=== PATIENT | female | born 1955 | race Caucasian/White ===

== ENCOUNTER → 2020-04-24 10:51 | Outpatient (BNVA) | payer MEDICAID, SELFPAY | PROVIDERS: Family Provider Family Medicine; PCP Family Medicine; Visit Provider Nurse Practitioner Family | DX: R30.0 Dysuria (principal); S80.811A Abrasion, right lower leg, initial encounter; T14.90XA Injury, unspecified, initial encounter | CPT/HCPCS: 81000; 87491; 87591 ==

== ENCOUNTER 2020-08-15 15:56 | Inpatient (IN) | payer MEDICAID, SELFPAY ==
[2020-08-15 16:08] VITALS: BP 122/72; PULSE 103; RESP 14; TEMP 36.2; O2SAT 91; BMI 28.4
--- NOTE | 2020-08-15 20:15 | W.ED.SKABFB ---
Documented by User: NANCI Sierra 08/15/20 23:52 HPI - Skin/Abscess/Foreign Bdy General: Chief complaint: Skin/Abscess/Foreign Body Stated complaint: Spider Bite on ABD/Enlarged over two wk span Time Seen by Provider: 08/15/20 20:15 History of Present Illness: HPI narrative: Patient is a 65-year-old female comes to the ED with a wound on her abdomen. Patient says the wound started about 2 weeks ago and was just a small red dot on her right lower quadrant of abdomen. She suspects that it was a spider bite. She says she woke up that morning and saw a red dot on her abdomen. It then started to develop some erythema and warmth around it and the small red dots started getting bigger. Patient has seen her PCP and has been put on clindamycin and she has been taking med for the past 6 days. PCP thinks patient has spider bite. Wound has not improved and has only gotten larger. She says it drains out bloody puslike drainage. She says it is painful she rates it a 10 out of 10. Patient says she has had a fever earlier this week but it resolved and she has not a fever since. Denies any chest pain, shortness of breath, bladder or bowel symptoms. Associated symptoms: Deny chills, fever(s), nausea or vomiting Review of Systems Const: Denies: fever(s), chills or fatigue Eyes: Denies: change in vision or eye discomfort ENMT: Denies: throat pain, odynophagia, nasal discharge or nasal congestion Card: Denies: chest pain, palpitations, edema, swelling of feet/ankles, dyspnea on exertion or orthopnea Resp: Denies: dyspnea, productive cough or non-productive cough GI: Denies: abdominal pain, nausea, vomiting, diarrhea, constipation or hematochezia : Denies: flank pain, dysuria or hematuria Musc: Denies: neck pain, back pain or extremity swelling Skin/Breast: Reports: erythema (Right lower quadrant), skin tenderness (Right lower quadrant) and new lesions (Lesion on right lower quadrant of abdomen with surrounding erythema.); Denies: rash Neuro: Denies: headache(s), numbness in extremities or weakness in extremities PFS ED PFSH: Medical History Benign hypertension Cardiac pacemaker Crohn disease Diabetes Diabetic neuropathy Hyperlipidemia, mixed Insomnia PAD (peripheral artery disease) Surgical History H/O section H/O: hysterectomy Family History Other Diabetes Social History Smoking and tobacco status: current every day smoker cigarettes Packs smoked per day: 2 Second hand smoke exposure: No Alcohol intake: never Desire information about alcohol rehabilitation?: No Desire information about substance/drug rehabilitation?: No History of recent travel: No Current gender identity: Female Female Reproductive History: Spontaneous abortions: No Physical Exam Const: COMMON NORMALS: no acute distress, patient oriented x3 and alert GENERAL APPEARANCE: cooperative and comfortable HENMT: COMMON NORMALS: normocephalic HEAD & SCALP: normocephalic MOUTH: Normal oral and palatal mucosa present THROAT: posterior oropharynx normal and uvula midline Eye: COMMON NORMALS: Equal, round and reactive pupils present PUPIL: Yes Equal, round and reactive pupils present Neck/C-Spine: COMMON NORMALS: supple GENERAL: Yes normal visual inspection Resp: COMMON NORMALS: normal respiratory effort, No retractions, No use of accessory muscles and clear to auscultation bilaterally AUSCULTATION: clear to auscultation bilaterally Cardio: COMMON NORMALS: regular rate, regular rhythm, S1 normal heart sound present, S2 normal heart sound present, No gallops present (Cardio), No clicks present (Cardio), No murmurs present (Cardio) and Peripheral pulses 2+ throughout RATE: regular rate RHYTHM: regular rhythm HEART SOUNDS: S1 normal heart sound present and S2 normal heart sound present PERIPHERAL PULSES: Peripheral pulses 2+ throughout GI: COMMON NORMALS: Normal to inspection, nondistended, normoactive bowel sounds present, Soft to palpation, non-tender and no masses PALPATION: Yes Soft to palpation OTHER: Patient has approximately 12 cm wound with breakdown of skin tissue on right lower quadrant. There is surrounding erythema and warmth. Minimal purulent and bloody drainage seen. Tenderness to palpation. Upon palpation tissue feels indurated and nonfluctuant. : COMMON NORMALS: Yes no CVA tenderness BLADDER/KIDNEY EXAM: Yes no CVA tenderness Back/Pelvis: COMMON NORMALS: no CVA tenderness Extremity: COMMON NORMALS: normal to inspection and no pedal edema Neuro: COMMON NORMALS: patient oriented x3 and moves all extremities SENSORIUM/ORIENTATION: Yes alert Skin: NARRATIVE SKIN EXAM: Patient has approximately 12 cm wound with breakdown of skin tissue on right lower quadrant. There is surrounding erythema and warmth. Minimal purulent and bloody drainage seen. Tenderness to palpation. Upon palpation tissue feels indurated and nonfluctuant. GENERAL SKIN EXAM: dry skin Course Vital Signs: Vital signs: Vital Signs Temperature 97.2 F L 08/15/20 16:08 Pulse Rate 76 08/15/20 22:21 Respiratory Rate 16 08/15/20 22:21 Blood Pressure 114/64 08/15/20 22:21 Pulse Oximetry 94 08/15/20 22:21 MDM - Skin/Abscess/Foreign Bdy Lab Data: Attestation: I reviewed the patient's lab results. Labs: Lab Results 08/15/20 08/15/20 08/15/20 Range/Units 20:43 20:43 20:43 WBC 15.3 H (4.0-10.0) 10^3/ uL RBC 4.34 (4.1-5.3) 10^6/u L Hgb 11.6 (11.5-15.3) g/dL Hct 35.1 L (37.0-47.0) % MCV 80.9 L (81-99) fL MCH 26.7 L (28.0-34.0) pg MCHC 33.0 (30.0-36.0) g/dL RDW 16.4 H (12.1-15.1) % Plt Count 166 (130-400) 10^3/c mm MPV Not Reportable Lymph % (Auto) Not Reportable [place] % (Auto) Not Reportable Lymph # (Auto) Not Reportable [place] # (Auto) Not Reportable Total Counted 100 (0-100) Atypical Lymphs % 0.0 (0-5) % Absolute Neutrophi ls 13.8 H (1.4-6.5) 10^3/c mm Segmented Neutroph ils 90 % Abs Segm Neuts (Ma n) 13.8 H (1.6-7.1) 10/cmm Band Neutrophils 0.0 % Abs Band Neuts (Ma n) 0.0 (0.0-1.2) 10^3/c mm Lymphocytes (Manua l) 8 % Monocytes (Manual) 1.0 % Absolute Monocytes 0.2 (0.1-0.6) 10^3/c mm Eosinophils (Manua l) 1 % Absolute Eosinophi ls 0.1 (0.0-0.7) 10^3/c mm Basophils (Manual) 0.0 % Absolute Basophils 0.0 (0.0-0.2) 10^3/c mm Platelet Estimate Normal (Normal) Hypochromasia Trace Sodium 126 L (136-145) mmol/L Potassium 5.0 (3.5-5.1) mmol/L Chloride 86 L (98-107) mmol/L Carbon Dioxide 27 (22-29) mmol/L Anion Gap 18.0 (5-19) BUN 33 H (8-23) mg/dL Creatinine 0.6 (0.5-0.9) mg/dL GFR Calculation 101.0 (90-130) mL/min Glucose 663 H* (65-115) mg/dL POC Glucose (70-110) mg/dL Calculated Osmolal ity 301 H (285-295) mOsm/k g Lactic Acid 1.6 (0.5-2.2) mmol/L Calcium 9.4 (8.5-10.5) mg/dL Total Bilirubin 0.5 (0.15-1.2) mg/dL AST 7 (0-32) U/L ALT 11 (0-33) U/L Alkaline Phosphata se 182 H (35-105) IU/L Total Protein 7.0 (6.6-8.7) g/dL Albumin 3.5 (3.5-5.2) g/dL Globulin 3.5 (1.3-4.6) g/dL Lipase 8 L (13-60) U/L 11/30/20 Range/Units 23:10 WBC (4.0-10.0) 10^3/ uL RBC (4.1-5.3) 10^6/u L Hgb (11.5-15.3) g/dL Hct (37.0-47.0) % MCV (81-99) fL MCH (28.0-34.0) pg MCHC (30.0-36.0) g/dL RDW (12.1-15.1) % Plt Count (130-400) 10^3/c mm MPV Lymph % (Auto) [place] % (Auto) Lymph # (Auto) [place] # (Auto) Total Counted (0-100) Atypical Lymphs % (0-5) % Absolute Neutrophi ls (1.4-6.5) 10^3/c mm Segmented Neutroph ils % Abs Segm Neuts (Ma n) (1.6-7.1) 10/cmm Band Neutrophils % Abs Band Neuts (Ma n) (0.0-1.2) 10^3/c mm Lymphocytes (Manua l) % Monocytes (Manual) % Absolute Monocytes (0.1-0.6) 10^3/c mm Eosinophils (Manua l) % Absolute Eosinophi ls (0.0-0.7) 10^3/c mm Basophils (Manual) % Absolute Basophils (0.0-0.2) 10^3/c mm Platelet Estimate (Normal) Hypochromasia Sodium (136-145) mmol/L Potassium (3.5-5.1) mmol/L Chloride (98-107) mmol/L Carbon Dioxide (22-29) mmol/L Anion Gap (5-19) BUN (8-23) mg/dL Creatinine (0.5-0.9) mg/dL GFR Calculation (90-130) mL/min Glucose (65-115) mg/dL POC Glucose 379 (70-110) mg/dL Calculated Osmolal ity (285-295) mOsm/k g Lactic Acid (0.5-2.2) mmol/L Calcium (8.5-10.5) mg/dL Total Bilirubin (0.15-1.2) mg/dL AST (0-32) U/L ALT (0-33) U/L Alkaline Phosphata se (35-105) IU/L Total Protein (6.6-8.7) g/dL Albumin (3.5-5.2) g/dL Globulin (1.3-4.6) g/dL Lipase (13-60) U/L Imaging Data^: CT Abd/Pel: Attestation: I personally reviewed and interpreted this imaging study as follows: Radiologist's impression: [address] [address] [address] Scan Report Signed Patient: Janae Shaw Unit #: [id number] : 1955 Age/Sex: 65 / F ADM Date: 08/15/20 Loc: ER Room/Bed: Attending Dr: Ordering Provider/Ordering MD: Terrance Dempsey Date of Service: 08/15/20 Procedure(s): CT abdomen pelvis w con* [id number] Accession Number(s): [id number] Report Number: [id number] PROCEDURE INFORMATION: Exam: CT Abdomen And Pelvis With Contrast Exam date and time: 08/15/2020 8:54 PM Age: 65 years old Clinical indication: Abdominal pain; Localized; Right lower quadrant (rlq); Prior surgery; Surgery date: 6+ months; Surgery type: Hyst; Patient HX: Rlq abd spider bite - redness, swelling; Additional info: Cellulitis with possible abscess in rlq TECHNIQUE: Imaging protocol: Computed tomography of the abdomen and pelvis with intravenous contrast. Radiation optimization: All CT scans at this facility use at least one of these dose optimization techniques: automated exposure control; mA and/or kV adjustment per patient size (includes targeted exams where dose is matched to clinical indication); or iterative reconstruction. Contrast material: OMNI 300; Contrast volume: 95 ml; Contrast route: INTRAVENOUS (IV); COMPARISON: No relevant prior studies available. RADIATION DOSE METRICS: Total DLP (mGy-cm): 1181.75 FINDINGS: Tubes, catheters and devices: Pacemaker leads in the heart. Liver: Normal. No mass. Gallbladder and bile ducts: Normal. No calcified stones. No ductal dilation. Pancreas: Normal. No ductal dilation. Spleen: Calcified granulomas in the spleen. Adrenal glands: Bilateral adrenal nodules measuring 1.9 cm on the right and 2.0 cm on the left. Hounsfield unit measure approximately 37. Kidneys and ureters: Fluid density cysts in both kidneys, Hounsfield units less than 20, and subcentimeter hypodensities which are too small to characterize. No follow-up is recommended. No calculus or hydronephrosis. Stomach and bowel: Unremarkable. No obstruction. No mucosal thickening. Appendix: The appendix is normal. Intraperitoneal space: Unremarkable. No free air. No significant fluid collection. Vasculature: Unremarkable. No abdominal aortic aneurysm. Lymph nodes: Unremarkable. No enlarged lymph nodes. Urinary bladder: Unremarkable as visualized. Reproductive: The uterus and ovaries are absent. Bones/joints: Unremarkable. No acute fracture. Soft tissues: Calcified oval cyst in the anterior abdominal wall. Skin thickening and subcutaneous fat stranding in the anterior mid right abdominal wall. No organized or discrete fluid collection identified. CT/CT abdomen pelvis w con* [id number] IMPRESSION: 1. Cellulitis in the anterior right abdominal wall with significant skin thickening. No subcutaneous soft tissue fluid collection or abscess identified. An intradermal fluid collection or abscess cannot be excluded. 2. Probable benign adenomas in the bilateral adrenal glands. Consider 12 month follow-up adrenal CT. (Sage Conner, ACR White Paper, 2017) COMMENTS: Consistent with the [employer]'s Incidental Findings Committee white paper (J Am Ger Radiol 2018): Any incidental renal lesion less than 1 cm or classified as too small to characterize, or any incidental cystic renal lesion characterized as simple-appearing, is likely benign. No follow-up imaging is recommended for these lesions per consensus recommendations based on imaging criteria. Radiation Dose CTDIVOL = (mGy): DLP = 1181.75 (mGy-cm) Dictated By: Hira Boyce Signed By: Hira Boyce Signed Date/Time: 08/15/202206 DD/ 04 Discharge Plan Discharge Condition: Good Prescriptions: No Action (DME) blood sugar diagnostic Strip See Rx Instructions .ROUTE .MEDSUPPLY Qty: 50 RF: 0 (DME) pen needle, diabetic [BD Ultra-Fine Orig Pen Needle] 29 gauge x 1/2 needle See Rx Instructions .ROUTE .MEDSUPPLY Qty: 100 RF: 0 insulin aspart U-100 [Novolog Flexpen U-100 Insulin] 100 unit/mL (3 mL) insulin pen 25 unit SUBCUT QID RF: 0 Lantus Solostar U-100 Insulin 100 unit/mL (3 mL) insulin pen 80 unit SUBCUT BID RF: 0 trazodone 150 mg tablet 300 mg PO BEDTIME RF: 0 Viibryd 40 mg tablet 40 mg PO DAILY RF: 0 fluoxetine [Prozac] 20 mg capsule 20 mg PO DAILY RF: 0 Eliquis 5 mg tablet 5 mg PO BID RF: 0 tramadol 50 mg tablet 50 mg PO TID PRN (Reason: pain) 3 Days Qty: 9 RF: 0 clindamycin HCl 300 mg capsule 300 mg PO TID RF: 0 hydroxyzine pamoate 25 mg capsule 25 mg PO Q6H PRN (Reason: UNKNOWN) RF: 0 pregabalin 150 mg capsule 150 mg PO BID RF: 0 Symbicort 160-4.5 mcg/actuation HFA aerosol inhaler 2 puff INHALATION BID RF: 0 Coding Level of Care Code ED Coke Crane Operator for Chg Fwd Exam Comprehensive Documented by User: Macie Iyer MD 08/15/20 23:27 HPI - Skin/Abscess/Foreign Bdy General: Chief complaint: Skin/Abscess/Foreign Body Stated complaint: Spider Bite on ABD/Enlarged over two wk span Time Seen by Provider: 08/15/20 20:15 [facility] ED PFSH: Medical History Benign hypertension Cardiac pacemaker Crohn disease Diabetes Diabetic neuropathy Hyperlipidemia, mixed Insomnia PAD (peripheral artery disease) Surgical History H/O section H/O: hysterectomy Family History Other Diabetes Social History Smoking and tobacco status: current every day smoker cigarettes Packs smoked per day: 2 Second hand smoke exposure: No Alcohol intake: never Desire information about alcohol rehabilitation?: No Desire information about substance/drug rehabilitation?: No History of recent travel: No Current gender identity: Female Course ED course: I saw this patient with Terrance Dempsey. She has an impressive, large, warm, indurated area on her right lower quadrant. This is hot and tender. She has been on antibiotics for at least a week with this and had continues to worsen. She said her nurse practitioner has been following it saw today and sent her to the hospital for further evaluation and admission. She does have an elevated white count. She said she has been having fevers and chills. Her blood sugar is very high. I spoke to Dr. Bishop and he agreed to admit her as she has failed outpatient treatment for her cellulitis. Vital Signs: Vital signs: Vital Signs Temperature 97.2 F L 08/15/20 16:08 Pulse Rate 76 08/15/20 22:21 Respiratory Rate 16 08/15/20 22:21 Blood Pressure 114/64 08/15/20 22:21 Pulse Oximetry 94 08/15/20 22:21 MDM - Skin/Abscess/Foreign Bdy Lab Data: Labs: Lab Results 08/15/20 08/15/20 08/15/20 Range/Units 20:43 20:43 20:43 WBC 15.3 H (4.0-10.0) 10^3/ uL RBC 4.34 (4.1-5.3) 10^6/u L Hgb 11.6 (11.5-15.3) g/dL Hct 35.1 L (37.0-47.0) % MCV 80.9 L (81-99) fL MCH 26.7 L (28.0-34.0) pg MCHC 33.0 (30.0-36.0) g/dL RDW 16.4 H (12.1-15.1) % Plt Count 166 (130-400) 10^3/c mm MPV Not Reportable Lymph % (Auto) Not Reportable [place] % (Auto) Not Reportable Lymph # (Auto) Not Reportable [place] # (Auto) Not Reportable Total Counted 100 (0-100) Atypical Lymphs % 0.0 (0-5) % Absolute Neutrophi ls 13.8 H (1.4-6.5) 10^3/c mm Segmented Neutroph ils 90 % Abs Segm Neuts (Ma n) 13.8 H (1.6-7.1) 10/cmm Band Neutrophils 0.0 % Abs Band Neuts (Ma n) 0.0 (0.0-1.2) 10^3/c mm Lymphocytes (Manua l) 8 % Monocytes (Manual) 1.0 % Absolute Monocytes 0.2 (0.1-0.6) 10^3/c mm Eosinophils (Manua l) 1 % Absolute Eosinophi ls 0.1 (0.0-0.7) 10^3/c mm Basophils (Manual) 0.0 % Absolute Basophils 0.0 (0.0-0.2) 10^3/c mm Platelet Estimate Normal (Normal) Hypochromasia Trace Sodium 126 L (136-145) mmol/L Potassium 5.0 (3.5-5.1) mmol/L Chloride 86 L (98-107) mmol/L Carbon Dioxide 27 (22-29) mmol/L Anion Gap 18.0 (5-19) BUN 33 H (8-23) mg/dL Creatinine 0.6 (0.5-0.9) mg/dL GFR Calculation 101.0 (90-130) mL/min Glucose 663 H* (65-115) mg/dL POC Glucose (70-110) mg/dL Calculated Osmolal ity 301 H (285-295) mOsm/k g Lactic Acid 1.6 (0.5-2.2) mmol/L Calcium 9.4 (8.5-10.5) mg/dL Total Bilirubin 0.5 (0.15-1.2) mg/dL AST 7 (0-32) U/L ALT 11 (0-33) U/L Alkaline Phosphata se 182 H (35-105) IU/L Total Protein 7.0 (6.6-8.7) g/dL Albumin 3.5 (3.5-5.2) g/dL Globulin 3.5 (1.3-4.6) g/dL Lipase 8 L (13-60) U/L 11/30/20 Range/Units 23:10 WBC (4.0-10.0) 10^3/ uL RBC (4.1-5.3) 10^6/u L Hgb (11.5-15.3) g/dL Hct (37.0-47.0) % MCV (81-99) fL MCH (28.0-34.0) pg MCHC (30.0-36.0) g/dL RDW (12.1-15.1) % Plt Count (130-400) 10^3/c mm MPV Lymph % (Auto) [place] % (Auto) Lymph # (Auto) [place] # (Auto) Total Counted (0-100) Atypical Lymphs % (0-5) % Absolute Neutrophi ls (1.4-6.5) 10^3/c mm Segmented Neutroph ils % Abs Segm Neuts (Ma n) (1.6-7.1) 10/cmm Band Neutrophils % Abs Band Neuts (Ma n) (0.0-1.2) 10^3/c mm Lymphocytes (Manua l) % Monocytes (Manual) % Absolute Monocytes (0.1-0.6) 10^3/c mm Eosinophils (Manua l) % Absolute Eosinophi ls (0.0-0.7) 10^3/c mm Basophils (Manual) % Absolute Basophils (0.0-0.2) 10^3/c mm Platelet Estimate (Normal) Hypochromasia Sodium (136-145) mmol/L Potassium (3.5-5.1) mmol/L Chloride (98-107) mmol/L Carbon Dioxide (22-29) mmol/L Anion Gap (5-19) BUN (8-23) mg/dL Creatinine (0.5-0.9) mg/dL GFR Calculation (90-130) mL/min Glucose (65-115) mg/dL POC Glucose 379 (70-110) mg/dL Calculated Osmolal ity (285-295) mOsm/k g Lactic Acid (0.5-2.2) mmol/L Calcium (8.5-10.5) mg/dL Total Bilirubin (0.15-1.2) mg/dL AST (0-32) U/L ALT (0-33) U/L Alkaline Phosphata se (35-105) IU/L Total Protein (6.6-8.7) g/dL Albumin (3.5-5.2) g/dL Globulin (1.3-4.6) g/dL Lipase (13-60) U/L Discharge Plan Discharge Condition: Good Prescriptions: No Action (DME) blood sugar diagnostic Strip See Rx Instructions .ROUTE .MEDSUPPLY Qty: 50 RF: 0 (DME) pen needle, diabetic [BD Ultra-Fine Orig Pen Needle] 29 gauge x 1/2 needle See Rx Instructions .ROUTE .MEDSUPPLY Qty: 100 RF: 0 insulin aspart U-100 [Novolog Flexpen U-100 Insulin] 100 unit/mL (3 mL) insulin pen 25 unit SUBCUT QID RF: 0 Lantus Solostar U-100 Insulin 100 unit/mL (3 mL) insulin pen 80 unit SUBCUT BID RF: 0 trazodone 150 mg tablet 300 mg PO BEDTIME RF: 0 Viibryd 40 mg tablet 40 mg PO DAILY RF: 0 fluoxetine [Prozac] 20 mg capsule 20 mg PO DAILY RF: 0 Eliquis 5 mg tablet 5 mg PO BID RF: 0 tramadol 50 mg tablet 50 mg PO TID PRN (Reason: pain) 3 Days Qty: 9 RF: 0 clindamycin HCl 300 mg capsule 300 mg PO TID RF: 0 hydroxyzine pamoate 25 mg capsule 25 mg PO Q6H PRN (Reason: UNKNOWN) RF: 0 pregabalin 150 mg capsule 150 mg PO BID RF: 0 Symbicort 160-4.5 mcg/actuation HFA aerosol inhaler 2 puff INHALATION BID RF: 0 Coding Level of Care Code ED Coke Crane Operator for Donna Fwd Exam Comprehensive
--- NOTE | 2020-08-15 20:24 | CTR_ITS ---
PROCEDURE INFORMATION: Exam: CT Abdomen And Pelvis With Contrast Exam date and time: 08/15/2020 8:54 PM Age: 65 years old Clinical indication: Abdominal pain; Localized; Right lower quadrant (rlq); Prior surgery; Surgery date: 6+ months; Surgery type: Hyst; Patient HX: Rlq abd spider bite - redness, swelling; Additional info: Cellulitis with possible abscess in rlq TECHNIQUE: Imaging protocol: Computed tomography of the abdomen and pelvis with intravenous contrast. Radiation optimization: All CT scans at this facility use at least one of these dose optimization techniques: automated exposure control; mA and/or kV adjustment per patient size (includes targeted exams where dose is matched to clinical indication); or iterative reconstruction. Contrast material: OMNI 300; Contrast volume: 95 ml; Contrast route: INTRAVENOUS (IV); COMPARISON: No relevant prior studies available. RADIATION DOSE METRICS: Total DLP (mGy-cm): 1181.75 FINDINGS: Tubes, catheters and devices: Pacemaker leads in the heart. Liver: Normal. No mass. Gallbladder and bile ducts: Normal. No calcified stones. No ductal dilation. Pancreas: Normal. No ductal dilation. Spleen: Calcified granulomas in the spleen. Adrenal glands: Bilateral adrenal nodules measuring 1.9 cm on the right and 2.0 cm on the left. Hounsfield unit measure approximately 37. Kidneys and ureters: Fluid density cysts in both kidneys, Hounsfield units less than 20, and subcentimeter hypodensities which are too small to characterize. No follow-up is recommended. No calculus or hydronephrosis. Stomach and bowel: Unremarkable. No obstruction. No mucosal thickening. Appendix: The appendix is normal. Intraperitoneal space: Unremarkable. No free air. No significant fluid collection. Vasculature: Unremarkable. No abdominal aortic aneurysm. Lymph nodes: Unremarkable. No enlarged lymph nodes. Urinary bladder: Unremarkable as visualized. Reproductive: The uterus and ovaries are absent. Bones/joints: Unremarkable. No acute fracture. Soft tissues: Calcified oval cyst in the anterior abdominal wall. Skin thickening and subcutaneous fat stranding in the anterior mid right abdominal wall. No organized or discrete fluid collection identified. CT/CT abdomen pelvis w con* [id number] IMPRESSION: 1. Cellulitis in the anterior right abdominal wall with significant skin thickening. No subcutaneous soft tissue fluid collection or abscess identified. An intradermal fluid collection or abscess cannot be excluded. 2. Probable benign adenomas in the bilateral adrenal glands. Consider 12 month follow-up adrenal CT. (Sage Conner, ACR White Paper, 2017) COMMENTS: Consistent with the [employer]'s Incidental Findings Committee white paper (J Am Ger Radiol 2018): Any incidental renal lesion less than 1 cm or classified as too small to characterize, or any incidental cystic renal lesion characterized as simple-appearing, is likely benign. No follow-up imaging is recommended for these lesions per consensus recommendations based on imaging criteria. Radiation Dose CTDIVOL = (mGy): DLP = 1181.75 (mGy-cm)
[2020-08-15 21:00] LABS: Hematocrit 35.1 % (37.0-47.0); Hemoglobin 11.6 g/dL (11.5-15.3); Mean Corpuscular Hemoglobin 26.7 pg (28.0-34.0); Mean Corpuscular Volume 80.9 fL (81-99); Platelet Count 166 10^3/cmm (130-400); Red Blood Count 4.34 10^6/uL (4.1-5.3); Red Cell Distribution Width 16.4 % (12.1-15.1); White Blood Count 15.3 10^3/uL (4.0-10.0)
[2020-08-15 21:11] VITALS: RESP 18; O2SAT 94
[2020-08-15] MEDS: morphine 4 mg/mL SDV 1 mL IVP (21:11)
[2020-08-15] MEDS: ondansetron 2 mg/ML SDV 2 mL 4 MG IVP (21:11)
[2020-08-15] MEDS: sodium chloride 0.9% 1,000 ML 999 ML IV (21:12)
[2020-08-15 21:30] LABS: Lactic Sepsis W/Reflex 1.6 mmol/L (0.5-2.2)
[2020-08-15 21:31] LABS: Alanine Aminotransferase 11 U/L (0-33); Albumin Level 3.5 g/dL (3.5-5.2); Alkaline Phosphatase 182 IU/L (35-105); Aspartate Amino Transferase 7 U/L (0-32); Blood Urea Nitrogen 33 mg/dL (8-23); Calcium 9.4 mg/dL (8.5-10.5); Carbon Dioxide 27 mmol/L (22-29); Chloride 86 mmol/L (98-107); Globulin 3.5 g/dL (1.3-4.6); Lipase 8 U/L (13-60); Osmolality Calculated 301 mOsm/kg (285-295); Sodium 126 mmol/L (136-145); Total Bilirubin 0.5 mg/dL (0.15-1.2)
[2020-08-15 21:34] LABS: Absolute Eosinophils 0.1 10^3/cmm (0.0-0.7); Absolute Neutrophil 13.8 10^3/cmm (1.4-6.5); Absolute Segmented Neutrophil 13.8 10/cmm (1.6-7.1); Eosinophils 1 %; Hypochromasia Trace; Lymphocytes 8 %; Monocytes Absolute 0.2 10^3/cmm (0.1-0.6); Platelet Estimate Normal (Normal); Segmented Neutrophils 90 %; Total Cells Counted 100 (0-100)
[2020-08-15 21:36] LABS: Glucose 663 mg/dL (65-115)
[2020-08-15] MEDS: iohexol 300 mg/mL 100 mL Btl IV (21:41)
[2020-08-15] MEDS: insulin regular-human 100 units/1 mL 10 UNIT IVP (21:56)
[2020-08-15 22:21] VITALS: BP 114/64; PULSE 76; RESP 16; O2SAT 94
[2020-08-15 23:15] LABS: Glucose Point of Care 379 mg/dL (70-110)
[2020-08-16] VITALS (11 sets, daily range): BP systolic 107–115; BP diastolic 57–66; PULSE 75–98; RESP 16–18; TEMP 36.7–37.4; O2SAT 88–96
[2020-08-16] MEDS: piperacillin-tazobactam 3.375 GM in sodium chloride 0.9% (plus) 50 ML IV ×3 (00:22→16:09)
--- NOTE | 2020-08-16 00:22 | PC.NURSE ---
finger stick glucose 394
[2020-08-16 00:24] LABS: Glucose Point of Care 394 mg/dL (70-110)
--- NOTE | 2020-08-16 00:33 | PC.NURSE ---
Called report to PARDEEP Steve
--- NOTE | 2020-08-16 01:19 | P.HP_ITS ---
Providers/Chief Complaint Admitting Physician: Winston Bishop MD Primary Care Provider: Rosie Hidalgo DO Chief Complaint: Spider Bite on ABD/Enlarged over two wk span History of Present Illness Janae Shaw is a 65 year old female with a past medical history of hypertension diabetes dyslipidemia, was admitted with chief complaint of worsening right lower quadrant abdominal wound, she had a spider bite 1 week back, after that she developed redness , erythema and progressively worsening swelling in the right lower abdominal quadrant, she was being managed as an outpatient by her primary care physician, for right lower quadrant abdominal wall cellulitis, seek had recently completed 7-day course of clindamycin as an outpatient.Clindamycin has failed to improve the right lower quadrant cellulitis.Currently the wound drains, bloody pus discharge, she is also complaining of subjective fever at home.Upon arrival in the ER , she denies any chest pain ,shortness of breath, nausea vomiting, constipation, diarrhea. Imaging study in the ER: CT abdomen and pelvis without contrast: Cellulitis in the anterior right abdominal wall with significant skin thickening. No subcutaneous soft tissue fluid collection or abscess identified. An intradermal fluid collection or abscess cannot be excluded. Pertinent labs: WBC 15.3, sodium: 126, RBS: 663. A, ED medications: Received 1 dose of IV vancomycin; as well as 1 dose of Zosyn. Review of Systems Const: Denies: change in appetite or diaphoresis Card: Denies: palpitations, edema, swelling of feet/ankles, dyspnea on exertion, orthopnea or leg pain with exertion Resp: Denies: dyspnea, productive cough, wheezing or pain on inspiration GI: Denies: diarrhea or constipation : Denies: flank pain Musc: Denies: back pain, extremity pain or extremity swelling Neuro: Denies: headache(s), difficulty walking or confusion Medications/Allergies Home Medications Medication Instructions Recorded Confirmed Last Taken Type apixaban 5 mg tablet 5 mg PO BID 03/03/20 08/15/20 08/14/20 History blood sugar diagnostic #50 each 03/03/20 08/15/20 Unknown History fluoxetine 20 mg capsule 20 mg PO DAILY 03/03/20 08/15/20 08/14/20 History insulin aspart U-100 100 unit/mL 25 unit SUBCUT QID ml 03/03/20 08/15/20 08/14/20 History (3 mL) subcutaneous pen insulin glargine 100 unit/mL (3 80 unit SUBCUT BID ml 03/03/20 08/15/20 08/14/20 History mL) subcutaneous pen pen needle, diabetic 29 gauge x #100 each 03/03/20 08/15/20 Unknown History 1/2 tramadol 50 mg tablet 50 mg PO TID PRN 3 Days #9 tab 03/03/20 08/15/20 08/14/20 Rx trazodone 150 mg tablet 300 mg PO BEDTIME tab 03/03/20 08/15/20 08/14/20 History vilazodone 40 mg tablet 40 mg PO DAILY 03/03/20 08/15/20 08/14/20 History budesonide-formoterol [Symbicort] 2 puff INHALATION BID 08/15/20 08/15/20 Unknown History clindamycin HCl 300 mg PO TID 08/15/20 08/15/20 08/14/20 History hydroxyzine pamoate 25 mg PO Q6H PRN 08/15/20 08/15/20 Unknown History pregabalin 150 mg PO BID 08/15/20 08/15/20 Unknown History Allergies Allergy/AdvReac Type Severity Reaction Status Date / Time gabapentin [From Neurontin] Allergy Severe ALGY-SEIZUR Verified 04/24/20 10:53 ES varenicline [From Chantix] Allergy Severe ALGY-SWELLI Verified 04/24/20 10:53 NG cortisone Allergy Mild ALGY-RASH Verified 04/24/20 10:53 silver Allergy Mild ALGY-RASH Verified 04/24/20 10:53 [From Tegaderm AG Mesh] codeine Allergy Unknown ALGY-HIVES Verified 04/24/20 10:53 PFSH Acute PFSH: Medical History (Updated 08/16/20 @ 02:09 by Winston Bishop MD) Benign hypertension Cardiac pacemaker Crohn disease Diabetes Diabetic neuropathy Hyperlipidemia, mixed Insomnia PAD (peripheral artery disease) Surgical History H/O section H/O: hysterectomy Family History Other Diabetes Social History Smoking and tobacco status: current every day smoker cigarettes Packs smoked per day: 2 Second hand smoke exposure: No Alcohol intake: never Desire information about alcohol rehabilitation?: No Desire information about substance/drug rehabilitation?: No History of recent travel: No Current gender identity: Female Female Reproductive History: Spontaneous abortions: No Vitals/I&O/Wt Last Vital Signs Temp 98.7 F 08/16/20 00:30 Pulse 88 08/16/20 00:30 Resp 18 08/16/20 00:30 BP 111/57 08/16/20 00:30 Pulse Ox 95 08/16/20 00:30 08/15/20 08/15/20 08/16/20 14:59 22:59 06:59 Intake Total 0 / 0 1250 / 1250 Balance 0 / 0 1250 / 1250 Weight last 48 hrs Weight 84.822 kg Physical Exam Const: COMMON NORMALS: patient oriented x3 HENMT: COMMON NORMALS: normocephalic, atraumatic, hearing grossly normal bilaterally and external ears normal HEAD & SCALP: normocephalic and atraumatic EXTERNAL EAR: Yes external ears normal Eye: COMMON NORMALS: no scleral icterus GENERAL EYE: appearance normal, both eyes and all related structures Chest: COMMONS NORMALS: normal inspection of the chest and normal palpation of entire chest wall CHEST: Yes Symmetrical chest wall rise Resp: COMMON NORMALS: normal respiratory effort, No retractions, No use of accessory muscles and clear to auscultation bilaterally EFFORT & INSPECTION: Yes symmetric chest movement AUSCULTATION: clear to auscultation bilaterally Cardio: COMMON NORMALS: regular rate, regular rhythm, S1 normal heart sound present, S2 normal heart sound present, No gallops present (Cardio), No murmurs present (Cardio), No rub (Cardio) and Peripheral pulses 2+ throughout RATE: regular rate RHYTHM: regular rhythm HEART SOUNDS: S1 normal heart sound present and S2 normal heart sound present PERIPHERAL PULSES: Peripheral pulses 2+ throughout GI: COMMON NORMALS: No hepatosplenomegaly present and no masses AUSCULTATION: Yes normoactive bowel sounds PALPATION: Yes No hepatosplenomegaly present RECTAL EXAM: deferred OTHER: Patient has approximately 12 cm wound with breakdown of skin tissue on right lower quadrant. There is surrounding erythema and warmth. Minimal purulent and bloody drainage seen. Tenderness to palpation. Upon palpation tissue feels indurated and nonfluctuant. Extremity: COMMON NORMALS: no clubbing, cyanosis or edema and no pedal edema Neuro: COMMON NORMALS: patient oriented x3 Data : 08/15/20 20:43 08/15/20 20:43 Micro: Microbiology 08/15/20 20:43 Blood Culture - Preliminary Blood SPECIMEN COLLECTED A&P Assessment and plan (1) Cellulitis: admitted with chief complaint of worsening right lower quadrant abdominal wound, she had a spider bite 1 week back, after that she developed redness , erythema and progressively worsening swelling in the right lower abdominal quadr ant, she was being managed as an outpatient by her primary care physician, for right lower quadrant abdominal wall cellulitis, seek had recently completed 7- day course of clindamycin as an outpatient. Clindamycin has failed to improve the right lower quadrant cellulitis. Currently the wound drains, bloody pus discharge, she is also complaining of subjective fever at home. Continue Vanco and Zosyn. She needs to be on Vanc and Zosyn as she is diabetic, and has not responded to outpatient clindamycin, with worsening of the cellulitis. Status: Acute (2) Sepsis: Sepsis secondary to: Abdominal RLQ : Cellulitis Patient is giving history of subjective fever at home, has leukocytosis, and has a source, she meets sepsis criteria. A.m. procalcitonin, lactic acid Wound culture/blood culture Continue Vanco and Zosyn for now Status: Acute (3) Spider bite: Status: Acute (4) Hyperglycemia: Has received 10 units of regular insulin in the ER. We will continue on medium dose sliding scale insulin Diabetic diet Monitor fingerstick glucose HbA1c Lipid profile TSH Status: Acute (5) Diabetes: Continue medium dose sliding scale insulin Status: Acute (6) Benign hypertension: Currently normotensive. We will continue to monitor blood pressure for now. Status: Acute Additional A&P Information Pseudohyponatremia: Secondary to hyperglycemia: Corrected serum sodium is 135. DVT prophylaxis: On Eliquis CODE STATUS: Full code Disposition: Discharged to home Attestations Medical Necessity Statement*: Patient needs to be in hospital for the management of right lower abdominal quadrant, cellulitis Coding Level of Care Code Acute Cured Meats Supervisor for [facility] Diagnoses Cellulitis L03.90 Sepsis A41.9 Spider bite T63.301A Hyperglycemia R73.9 Diabetes E11.9 Benign hypertension I10
--- NOTE | 2020-08-16 02:38 | PC.PHAR ---
Pharmacokinetic dosing service Date: 08/16/20 Time: 020 Objective: Patient: Janae Shaw Floor: 259[address]1 Age: 65 yo Serum creatinine: 0.6 mg/dL Height: 68.0 Inches Weight (kg): 84.822 Diagnosis: Relevant medical/social history: Cultures and sensitivities: Other labs: Assessment: IBW (kg): 63.90 Dosing wt(kg): 84.822 Estimated Creatinine clearance (ml/min): 96.8 CRCL method: Cockcroft and Gault using ibw(default). Drug selected: Vancomycin Loading dose (mg): 0 Vd (liters): 76.3 (factor used: 0.9 L/kg) Sergey (hr-1): 0.085 Half life (hrs): 8.15 Recommended dose: 1500 mg Interval: 12 hrs Infusion time (hrs): 1.5 Predicted peak (mcg/mL): 28.9 Predicted trough (mcg/mL): 11.84 Total body weight is being used for vancomycin dosing. Renal function is stable [ ] /unstable [ ] Recommendations: Give Vancomycin 1500 mg q 12 hrs with an expected Cpeak of 28.9 mcg/ml and an expected Ctrough of 11.84 mcg/ml Renal dosing of other antibiotics (review renal dosing of other medications and list guidelines here): Thank you for the consult, will continue to follow. Signature: Hattie Kidd [facility]
[2020-08-16] MEDS: sodium chloride 0.9% 1,000 ML 125 ML IV ×3 (02:55→17:43)
[2020-08-16 05:58] LABS: Alanine Aminotransferase 11 U/L (0-33); Albumin Level 3.3 g/dL (3.5-5.2); Alkaline Phosphatase 168 IU/L (35-105); Blood Urea Nitrogen 24 mg/dL (8-23); Calcium 8.8 mg/dL (8.5-10.5); Carbon Dioxide 27 mmol/L (22-29); Chloride 94 mmol/L (98-107); Globulin 2.6 g/dL (1.3-4.6); Glomerular Filtration Rate 124.6 mL/min (90-130); Glucose 362 mg/dL (65-115); Osmolality Calculated 295 mOsm/kg (285-295); Sodium 133 mmol/L (136-145); Thyroid Stimulating Hormone 2.04 uIU/mL (0.27-4.20); Total Bilirubin 0.5 mg/dL (0.15-1.2); Total Protein 5.9 g/dL (6.6-8.7)
[2020-08-16 06:00] LABS: Aspartate Amino Transferase 9 U/L (0-32)
--- NOTE | 2020-08-16 06:00 | XRR_ITS ---
PROCEDURE INFORMATION: Exam: XR Chest, 1 View Exam date and time: 08/16/2020 6:15 AM Age: 65 years old Clinical indication: Shortness of breath; Prior surgery; Surgery type: Pacemaker; Additional info: SOB TECHNIQUE: Imaging protocol: XR of the chest Views: 1 view. COMPARISON: No relevant prior studies available. FINDINGS: Lungs: Lungs are well aerated without a focal area of consolidation. Pleural space: Unremarkable. No pleural effusion. No pneumothorax. Heart/Mediastinum: The cardiac silhouette appears enlarged, some of which is magnification related to the AP projection. Vasculature: Pacemaker is present via a left subclavian approach. Bones/joints: Unremarkable. XR/XR chest 1V portable [id number] IMPRESSION: Lungs are well aerated without a focal area of consolidation.
[2020-08-16 06:15] LABS: Chol HDL Ratio 7.45 mg/dL (0.0-4.40); Cholesterol 149 mg/dL (0-200); HDL Cholesterol 20 mg/dL (60-100); LDL Cholesterol Calculated 83 mg/dL (50-129); LDL HDL Ratio 4.15 RATIO (0.00-3.22); Triglycerides 228 mg/dL (0-150)
[2020-08-16 06:50] LABS: Glucose Point of Care 371 mg/dL (70-110)
[2020-08-16 06:50] LABS: Procalcitonin 0.15 ng/mL (0-0.5)
[2020-08-16 07:30] LABS: Add Urine Culture? No; Add Urine Microscopic? YES; Bacteria Urine TRACE /hpf; Bilirubin Urine Neg (Negative); Blood Urine 2+ (Negative); Glucose Urine UA 4+ (Normal); Ketones Urine Negative (Negative); Leukocyte Esterase Urine Negative (Negative); Nitrate Urine Negative (Negative); Protein Urine Neg (Negative); RBC Urine 0-4 /hpf (0-2); Specific Gravity, Urine 1.015 (1.005-1.030); Urine Appearance Clear (CLEAR); Urine Color Yellow (Yellow); Urobilinogen Urine Norm (Negative)
[2020-08-16] MEDS: pregabalin 150 mg Capsule PO ×2 (09:19→17:43)
[2020-08-16] MEDS: insulin glargine 100 units/1 mL 80 UNIT SUBCUT ×2 (09:19→21:44)
[2020-08-16] MEDS: fluoxetine 20 mg Capsule PO (09:19)
--- NOTE | 2020-08-16 10:12 | PC.CHAP ---
Pastoral Care Encounter/Spiritual Assessment Type of Contact [] Declined med surg nurse visit [] Patient/Family/Request visit [] Outpatient visit [] Follow-up visit [] Physician referral [] Code/Alert [] Routine visit [] Staff referral [] Actively dying [] Patient sleeping [] Family support [] [] Out of room [] Palliative care [] [] Receiving care in room [] Pre-surgical visit [] Trauma [] Long length of stay [] ICU visit [] Other: Relational/Emotional Strength [x] Patient feels connected with others/family/visitors/staff [] Distress [] Loneliness/isolation [] Abandonment Spirituality of Patient [x] Person of Mitra [] Attends Episcopal of their Mitra [] Believes in Prayer [] Reads Bible or Sabianism materials [] There are Spiritual issues to be addressed Humidifier Operator Interventions [x] Prayer [] Active listening [] Non-anxious presence [] Spiritual/emotional support [] Crisis/trauma care [] Spiritual counseling [] Bereavement support [] Provided bereavement packet [] Provided Bible/devotional materials [] Provided toy/stuffed animal, coloring book to patient or family member [] Provided Communion [] Anointing/[place] [] Salvation [] Completed spiritual assessment [] Other: Impact on Illness or Injury [] Angry [] Fearful [] Anxious [] Often cries [] Exhaustion [] Unable to work [] Unable to attend sabianist [] Unable to walk/stand [] Unable to read [] Unable to drive [] Unable to eat/drink [] Unable to sleep [] Unable to be with family [] Patient intubated [] Other: Summary feeling better Time spent with patient 15 min
[2020-08-16 10:45] LABS: Glucose Point of Care 425 mg/dL (70-110)
--- NOTE | 2020-08-16 11:41 | P.PN_ITS ---
Subjective Subjective: Interval history: This morning patient was examined, she tells me that the area of cellulitis on the right lower quadrant, continues to drain, is quite painful, had fevers at home, she is a poorly controlled diabetic, tells me that her blood sugars in the high 300s, is on fair bit of insulin, she does smoke, she does have COPD Vitals/I&O/Wt Last Vital Signs Temp 98.1 F 08/16/20 11:31 Pulse 83 08/16/20 11:31 Resp 18 08/16/20 11:31 BP 107/62 08/16/20 11:31 Pulse Ox 91 08/16/20 11:31 08/15/20 08/16/20 08/16/20 22:59 06:59 14:59 Intake Total 0 / 0 1250 / 1250 804.167 / 804.167 Output Total 800 / 800 Balance 0 / 0 450 / 450 804.167 / 804.167 Weight last 48 hrs Weight 87.498 kg Weight 84.822 kg Physical Exam Const: COMMON NORMALS: no acute distress and patient oriented x3 HENMT: COMMON NORMALS: normocephalic HEAD & SCALP: normocephalic Neck/C-Spine: COMMON NORMALS: no JVD Resp: COMMON NORMALS: normal respiratory effort, No retractions, No use of accessory muscles and clear to auscultation bilaterally AUSCULTATION: clear to auscultation bilaterally Cardio: COMMON NORMALS: no JVD, regular rate, regular rhythm, S1 normal heart sound present and S2 normal heart sound present RATE: regular rate RHYTHM: regular rhythm HEART SOUNDS: S1 normal heart sound present and S2 normal heart sound present GI: COMMON NORMALS: Normal to inspection, nondistended, normoactive bowel sounds present, Soft to palpation, non-tender, No hepatosplenomegaly present, no masses and no bruits PALPATION: Yes Soft to palpation and Yes No hepa tosplenomegaly present Extremity: COMMON NORMALS: capillary refill normal, no clubbing, cyanosis or edema, no calf tenderness and no pedal edema Neuro: COMMON NORMALS: patient oriented x3 Psych: COMMON NORMALS: mental status grossly normal Skin: NARRATIVE SKIN EXAM: Right lower quadrant abdomen, open excoriation, 2 x 3 cm, round, with active drainage, purulence, serous, some fluctuance Data : 08/15/20 20:43 08/16/20 04:26 Micro: Microbiology 08/15/20 20:43 Blood Culture - Preliminary Blood SPECIMEN COLLECTED A&P Assessment and plan (1) Cellulitis: -Right lower quadrant abdomen, brown recluse spider bite, now with extensive cellulitis, purulent drainage -Has failed outpatient antibiotic therapy -Keep n.p.o. for now -Poorly controlled type 2 diabetes, smoker -Currently on vancomycin and Zosyn -Cultures obtained -I have consulted general surgery for possible debridement Status: Acute (2) Sepsis: Sepsis secondary to: Abdominal RLQ : Cellulitis Patient is giving history of subjective fever at home, has leukocytosis, and has a source, she meets sepsis criteria. Pro-Beto 0.015 lactic acid 1.6 Wound culture/blood culture Continue Vanco and Zosyn for now Status: Acute (3) Spider bite: Status: Acute (4) Hyperglycemia: Has received 10 units of regular insulin in the ER. Continue home insulin Lantus 80 units twice daily, with aspart 25 units 3 times daily Diabetic diet Monitor fingerstick glucose HbA1c Lipid profile TSH Status: Acute (5) Diabetes: Continue medium dose sliding scale insulin Status: Acute (6) Benign hypertension: Currently normotensive. We will continue to monitor blood pressure for now. Status: Acute (7) History of pulmonary embolism: -History of DVT and PE over a year ago -On Eliquis Status: Acute Additional A&P Information Pseudohyponatremia: Secondary to hyperglycemia: Corrected serum sodium is 135. DVT prophylaxis: On Eliquis CODE STATUS: Full code Disposition: Discharged to home Attestations Medical Necessity Statement*: Patient requires hospitalization for diffuse cellulitis of right lower quadrant, with sepsis Coding Level of Care Code Acute Motion Picture Director for [facility] Diagnoses Cellulitis L03.90 Sepsis A41.9 Spider bite T63.301A Hyperglycemia R73.9 Diabetes E11.9 Benign hypertension I10 History of pulmonary embolism Z86.711
[2020-08-16 12:08] LABS: Basophils # 0.3 10^3/uL (0.0-0.1); Basophils % 1.6 %; Eosinophils # 0.1 10^3/uL (0.0-0.8); Eosinophils % 0.5 %; Hematocrit 33.5 % (37.0-47.0); Hemoglobin 11.1 g/dL (11.5-15.3); Lymphocytes # 1.1 10^3/uL (0.8-4.8); Lymphocytes % 6.8 %; Mean Corpuscular HGB Conc 33.1 g/dL (30.0-36.0); Mean Corpuscular Hemoglobin 26.9 pg (28.0-34.0); Mean Corpuscular Volume 81.1 fL (81-99); Monocytes # 0.3 10^3/uL (0.2-0.9); Neutrophils # 13.78 10^3/uL (1.8-7.7); Neutrophils % 84.1 %; Nucleated Red Blood Cells % 0 %; Platelet Count 185 10^3/cmm (130-400); Red Blood Count 4.13 10^6/uL (4.1-5.3); Red Cell Distribution Width 16.4 % (12.1-15.1); White Blood Count 16.4 10^3/uL (4.0-10.0)
[2020-08-16] MEDS: TRAMadol 50 mg Tablet PO (13:01)
[2020-08-16 13:11] LABS: Add RBC Morph Yes; RBC Morph Comp No; Slide Review Slide Review Perform
[2020-08-16 13:12] LABS: Dimorphic RBC 1+; Ovalocytes 1+; Poikilocytosis 1+; Schistocytes Trace
[2020-08-16] MEDS: vancomycin 1,500 MG/300 ML PIGGYBACK 200 MG IV (13:34)
[2020-08-16 14:55] LABS: Estmated Average Glucose 255; Hemoglobin A1C 10.5 % (4.0-6.0)
--- NOTE | 2020-08-16 15:44 | PM.CONSULT ---
Providers/Reason For Consult Consulting Physican/Specialty*: General Surgery Quinton Mcduffie MD Reason for Consult*: Requesting debridement of abdominal wound. Attending Physician: Viet Hernández MD Primary Care Provider: Rosie Hidalgo DO History of Present Illness History of Present Illness Janae Shaw is a 65 year old female admitted yesterday for what she presumes was a spider bite that she incurred on the right lower quadrant of her abdominal wall about 2 weeks ago. She says for about a week it was just somewhat red and swollen but about a week ago it opened up and started draining some fluid. It sounds like she was treated as an outpatient on an oral course of clindamycin, but it continued to worsen. She says she has had fevers and chills at home. She eventually came to the emergency room and was admitted and intravenous antibiotics were started. Her CAT scan on presentation did not show an obvious fluid collection. I was asked to see her for possible debridement/incision and drainage to evaluate for a possible underlying abscess. Review of Systems General: Reports: 10 or more systems reviewed and unremarkable except in HPI and below Const: Reports: fever(s) and chills GI: Reports: abdominal pain Meds/Allergies Home Medications and Allergies Home Medications Medication Instructions Recorded Confirmed Last Taken Type apixaban 5 mg tablet 5 mg PO BID 03/03/20 08/15/20 08/14/20 History blood sugar diagnostic #50 each 03/03/20 08/15/20 Unknown History fluoxetine 20 mg capsule 20 mg PO DAILY 03/03/20 08/15/20 08/14/20 History insulin aspart U-100 100 unit/mL 25 unit SUBCUT QID ml 03/03/20 08/15/20 08/14/20 History (3 mL) subcutaneous pen insulin glargine 100 unit/mL (3 80 unit SUBCUT BID ml 03/03/20 08/15/20 08/14/20 History mL) subcutaneous pen pen needle, diabetic 29 gauge x #100 each 03/03/20 08/15/20 Unknown History 1/2 tramadol 50 mg tablet 50 mg PO TID PRN 3 Days #9 tab 03/03/20 08/15/20 08/14/20 Rx trazodone 150 mg tablet 300 mg PO BEDTIME tab 03/03/20 08/15/20 08/14/20 History vilazodone 40 mg tablet 40 mg PO DAILY 03/03/20 08/15/20 08/14/20 History budesonide-formoterol [Symbicort] 2 puff INHALATION BID 08/15/20 08/15/20 Unknown History clindamycin HCl 300 mg PO TID 08/15/20 08/15/20 08/14/20 History hydroxyzine pamoate 25 mg PO Q6H PRN 08/15/20 08/15/20 Unknown History pregabalin 150 mg PO BID 08/15/20 08/15/20 Unknown History Allergies Allergy/AdvReac Type Severity Reaction Status Date / Time gabapentin [From Neurontin] Allergy Severe ALGY-SEIZUR Verified 04/24/20 10:53 ES varenicline [From Chantix] Allergy Severe ALGY-SWELLI Verified 04/24/20 10:53 NG cortisone Allergy Mild ALGY-RASH Verified 04/24/20 10:53 silver Allergy Mild ALGY-RASH Verified 04/24/20 10:53 [From Tegaderm AG Mesh] codeine Allergy Unknown ALGY-HIVES Verified 04/24/20 10:53 Current Medications Current Medications Generic Name Dose Route Start Last Admin Trade Name Freq PRN Reason Stop Dose Admin Fluoxetine HCl 20 mg 08/16/20 09:00 08/16/20 09:19 Fluoxetine 20 Mg Capsule PO 20 mg DAILY EMMA Administration Piperacillin Sod/Tazobactam 50 mls @ 12.5 mls/hr 08/16/20 08:30 08/16/20 09:19 Sod 3.375 gm/ Sodium Chloride IV 12.5 mls/hr Q8H EMMA Administration Protocol Sodium Chloride 1,000 mls @ 125 mls/hr 08/16/20 02:00 08/16/20 09:21 Sodium Chloride 0.9% IV 125 mls/hr .Q8H EMMA Administration Vancomycin/PEG/NADA/Lysine/Water 1,500 mg in 300 mls @ 200 mls/hr 08/16/20 13:30 08/16/20 13:34 Vancocin IV 200 mls/hr Q12H EMMA Administration Insulin Aspart 25 unit 08/16/20 11:00 08/16/20 11:28 Insulin Aspart 100 Unit/1 Ml SUBCUT 25 unit TIDAC EMMA Administration Insulin Glargine 80 unit 08/16/20 09:00 08/16/20 09:19 Insulin Glargine 100 Units/1 Ml SUBCUT 80 unit Q12H EMMA Administration Pregabalin 150 mg 08/16/20 09:00 08/16/20 09:19 Pregabalin 150 Mg Capsule PO 150 mg BID EMMA Administration Tramadol HCl 50 mg 08/16/20 01:11 08/16/20 13:01 Tramadol 50 Mg Tablet PO 50 mg TID PRN Administration pain PFSH Acute PFSH: Medical History (Updated 08/16/20 @ 16:04 by Quinton Mcduffie MD) Benign hypertension Crohn disease Diabetes Diabetic neuropathy History of DVT (deep vein thrombosis) History of pulmonary embolism Hyperlipidemia, mixed Insomnia PAD (peripheral artery disease) Surgical History (Updated 08/16/20 @ 16:04 by Quinton Mcduffie MD) Cardiac pacemaker H/O section x 1 H/O: hysterectomy / BSO Family History Other Diabetes Social History (Updated 08/16/20 @ 16:04 by Quinton Mcduffie MD) Smoking and tobacco status: current every day smoker cigarettes Packs smoked per day: 2.5 Years cigarettes smoked: 50 Alcohol intake: never Desire information about alcohol rehabilitation?: No Desire information about substance/drug rehabilitation?: No History of recent travel: No Current gender identity: Female Female Reproductive History: Spontaneous abortions: No Vitals/I&O/Wt Last Vital Signs Temp 98.1 F 08/16/20 11:31 Pulse 83 08/16/20 11:31 Resp 18 08/16/20 11:31 BP 107/62 08/16/20 11:31 Pulse Ox 91 08/16/20 11:31 08/16/20 08/16/20 08/16/20 06:59 14:59 22:59 Intake Total 1250 / 1250 1044.167 / 1044.167 Output Total 800 / 800 Balance 450 / 450 1044.167 / 1044.167 Weight last 48 hrs Weight 192 lb 14.4 oz Weight 187 lb Physical Exam Narrative: EXAM NARRATIVE: The patient was encountered in her hospital room. She initially was a little bit groggy but was easily arousable. Her pupils seem equal. No carotid bruits are heard. The lungs are clear anteriorly. The heart is regular. The abdomen is moderately obese but is soft. The patient has an obvious wound in the right lower quadrant of the abdominal wall. The overlying bandages are removed revealing about a 10 cm raw area of tissue with surrounding erythema and some induration. There is some very slow drainage that is apparent on the overlying bandage but no obvious open wounds aside from the overall raw surface of the wound itself. The extremities reveal no edema. Neurologically the patient appears to be grossly intact. Data Micro: Micro: Microbiology 08/15/20 20:43 Blood Culture - Pr eliminary Blood SPECIMEN [facility] Imaging^: CT Abd/Pel: Radiologist's impression: CT abdomen/pelvis 08/15/2020 IMPRESSION: 1. Cellulitis in the anterior right abdominal wall with significant skin thickening. No subcutaneous soft tissue fluid collection or abscess identified. An intradermal fluid collection or abscess cannot be excluded. 2. Probable benign adenomas in the bilateral adrenal glands. A&P Assessment and plan (1) Cellulitis: This patient has a sizable wound with some induration and edema associated with her surrounding cellulitis. I made her aware that there may or may not be an abscess associated with part of the abdominal wall. I discussed a debridement of the wound with an attempt to get underneath the area to see if there is anything that could be drained. The procedure was discussed with her in some detail. She seems to understand and is agreeable to proceeding. I will make the patient n.p.o. after midnight tonight and we will proceed with a debridement/incision and drainage procedure tomorrow morning. Status: Acute Consult Attestations Medical Necessity Statement: See admitting service's notation. Coding Level of Care Code Acute Music Industry Internship for [facility] Diagnoses Cellulitis L03.90
[2020-08-16 17:01] LABS: Glucose Point of Care 171 mg/dL (70-110)
[2020-08-16 20:15] LABS: Glucose Point of Care 141 mg/dL (70-110)
[2020-08-16] MEDS: trazodone 150 mg Tablet 300 MG PO (21:44)
[2020-08-17] VITALS (21 sets, daily range): BP systolic 97–131; BP diastolic 54–67; PULSE 66–85; RESP 14–18; TEMP 36.2–37.4; O2SAT 88–99
[2020-08-17] MEDS: piperacillin-tazobactam 3.375 GM in sodium chloride 0.9% (plus) 50 ML IV ×3 (00:52→16:21)
[2020-08-17] MEDS: vancomycin 1,500 MG/300 ML PIGGYBACK 200 MG IV ×2 (04:59→13:56)
[2020-08-17 05:33] LABS: Basophils # 0.2 10^3/uL (0.0-0.1); Basophils % 1.9 %; Eosinophils # 0.1 10^3/uL (0.0-0.8); Eosinophils % 0.7 %; Hematocrit 32.1 % (37.0-47.0); Hemoglobin 10.2 g/dL (11.5-15.3); Lymphocytes # 1.7 10^3/uL (0.8-4.8); Lymphocytes % 13.5 %; Mean Corpuscular HGB Conc 31.8 g/dL (30.0-36.0); Mean Corpuscular Hemoglobin 26.3 pg (28.0-34.0); Mean Corpuscular Volume 82.7 fL (81-99); Monocytes # 0.3 10^3/uL (0.2-0.9); Monocytes % 2.2 %; Neutrophils # 9.48 10^3/uL (1.8-7.7); Neutrophils % 75.6 %; Nucleated Red Blood Cells % 0 %; Platelet Count 176 10^3/cmm (130-400); Red Blood Count 3.88 10^6/uL (4.1-5.3); Red Cell Distribution Width 16.3 % (12.1-15.1); White Blood Count 12.6 10^3/uL (4.0-10.0)
[2020-08-17 05:35] LABS: Mean Platelet Volume 10.6 fL (7.4-10.4)
[2020-08-17 06:08] LABS: Procalcitonin 0.08 ng/mL (0-0.5)
[2020-08-17 06:11] LABS: Alanine Aminotransferase 8 U/L (0-33); Albumin Level 2.7 g/dL (3.5-5.2); Alkaline Phosphatase 130 IU/L (35-105); Anion Gap 13.9 (5-19); Aspartate Amino Transferase 7 U/L (0-32); Blood Urea Nitrogen 14 mg/dL (8-23); Calcium 8.1 mg/dL (8.5-10.5); Carbon Dioxide 26 mmol/L (22-29); Chloride 97 mmol/L (98-107); Globulin 3.2 g/dL (1.3-4.6); Glomerular Filtration Rate 161.2 mL/min (90-130); Glucose 211 mg/dL (65-115); Osmolality Calculated 283 mOsm/kg (285-295); Potassium 3.9 mmol/L (3.5-5.1); Sodium 133 mmol/L (136-145); Thyroid Stimulating Hormone 1.79 uIU/mL (0.27-4.20); Total Bilirubin 0.4 mg/dL (0.15-1.2); Total Protein 5.9 g/dL (6.6-8.7)
--- NOTE | 2020-08-17 06:11 | PC.NURSE ---
AT APPROXIMATELY 0525 THIS NURSE WAS ASKED TO COME TO THE PATIENT'S ROOM FOR BURNING AND LEAKING AT HER IV SITE IN THE LEFT FOREARM. UPON ENTERING THE ROOM, THE IV SITE WAS LEAKING, THE SURROUNDING TISSUE WAS EDEMATOUS, AND THERE WAS BURNING AT THE IV SITE. THE MEDICATION RUNNING WAS VANCOMYCIN AT 200/MLS PER HR PER THE ORDER. THE VANC WAS STOPPED IMMEDIATELY AND IV WAS DISCONTINUED. THE PATIENT REPORTED NO MORE PAIN AFTER THE VANC WAS STOPPED AND IV REMOVED. MIDDLEWARE DEVELOPER HOSPITALIST CALLED AND NOTIFIED. THE PATIENT CONTINUES TO DENY ANY PAIN, AND PULSES ARE STILL PALPABLE.
[2020-08-17 06:12] LABS: Magnesium 1.7 mg/dL (1.7-2.3); Phosphorus 3.1 mg/dL (2.5-4.5)
[2020-08-17 06:45] LABS: Glucose Point of Care 216 mg/dL (70-110)
--- NOTE | 2020-08-17 08:21 | PM.PN ---
Subjective Subjective: Interval history: Nursing reported that the patient was having some hallucinations last night. She tells me that her abdominal area is hurting where her wound is this morning but she is ready to proceed with a debridement later today. Vitals/I&O/Wt Last Vital Signs Temp 99.0 F 08/17/20 07:18 Pulse 78 08/17/20 08:13 Resp 14 08/17/20 08:13 BP 131/67 08/17/20 07:18 Pulse Ox 92 08/17/20 08:13 08/16/20 08/17/20 08/17/20 22:59 06:59 14:59 Intake Total 1590 / 2684.167 1350 / 1350 Balance 1590 / 2684.167 1350 / 1350 Weight last 48 hrs Weight 205 lb 6.4 oz Weight 192 lb 14.4 oz Weight 187 lb Physical Exam Narrative: EXAM NARRATIVE: The patient has some small punctate vesicles in the pubic area this morning that the nurse had pointed out to me and had not seen her earlier. The wound itself appears to be about the same. Data : 08/17/20 05:04 08/17/20 05:04 Micro: Microbiology 08/15/20 20:43 Blood Culture - Preliminary Blood NEGATIVE TO DATE A&P Assessment and plan (1) Cellulitis: Planning a trip to the operating room today for debridement and exploration of the subcutaneous layer. Status: Acute Attestations Medical Necessity Statement*: See admitting service's notation. Coding Level of Care Code Acute Steel Rule Inspector for Donna Gutierrez Diagnoses Cellulitis L03.90
[2020-08-17] MEDS: sodium chloride 0.9% 1,000 ML 125 ML IV ×2 (09:03→16:24)
[2020-08-17] MEDS: insulin glargine 100 units/1 mL 80 UNIT SUBCUT ×2 (09:04→20:06)
--- NOTE | 2020-08-17 09:45 | PC.NURSE ---
pt off floor to surgery
--- NOTE | 2020-08-17 10:39 | ANES.PREANE2 ---
Pre-Anesthetic Assessment Pre-Anesthetic Assessment: Height/Weight: Height 1.73 m Weight 93.168 kg Temp Pulse Resp BP Pulse Ox 99.0 F 78 14 131/67 92 08/17/20 07:18 08/17/20 08:13 08/17/20 08:13 08/17/20 07:18 08/17/20 08:13 Preop Diagnosis: addominal wall mass Proposed Procedure: Operation Date: 08/17/20 10:55 Proposed Procedures p Debridement abdominal wound(Not Applicable) - Quinton Mcduffie MD Familial anesthetic complications: denies Was Beta Rohan taken within 24 hours: N/A Last intake: Intake Last Liquid Date 08/16/20 Last Liquid Time 18:00 Last Solid Date 08/16/20 Last Solid Time 18:00 Social: Social History: Tobacco Packs per day: 1/2 ppd Pack years: 50 plus years Comment: smokes MJ hx of IV drug use Exam: Pre-Anes Outpt Exam: alert and oriented x 3 Airway: Submandibular: WNL Cervical ROM: WNL MP: 2 Dentition: Full Pulmonary: Pulmonary: COPD and [place] CV/HEM: CV/HEM: Arrythmia and HTN Comments: pacemaker placed 20 years ago : : None reported Hepatic: Hepatic: None reported GI: GI: None reported Metabolic: Metabolic: DM (IDDM) Musc/skel: Musc/skel: Fibromyalgia (legs arms feet ) Neuropsych: Neuropsych: Anxiety, Bipolar and Depression Anesthetic Plan: ASA status: 3 Anesthesia: Anesthesia Evaluation, General and MAC Meds/Allergies Current Medications: Current Medications Generic Name Dose Route Start Last Admin Trade Name Randy PRN Reason Stop Dose Admin Fluoxetine HCl 20 mg 08/16/20 09:00 08/16/20 09:19 Fluoxetine 20 Mg Capsule PO 20 mg DAILY EMMA Administration Piperacillin Sod/T azobactam 50 mls @ 12.5 mls /hr 08/16/20 08:30 08/17/20 09:03 Sod 3.375 gm/ So dium Chloride IV 12.5 mls/hr Q8H EMMA Administration Protocol Sodium Chloride 1,000 mls @ 125 m ls/hr 08/16/20 02:00 08/17/20 09:03 Sodium Chloride 0.9% IV 125 mls/hr .Q8H EMMA Administration Vancomycin/PEG/NAD A/Lysine/Water 1,500 mg in 300 m ls @ 200 mls/hr 08/16/20 13:30 08/17/20 07:45 Vancocin IV Infused Q12H EMMA Infusion Insulin Aspart 25 unit 08/16/20 11:00 08/17/20 07:42 Insulin Aspart 1 00 Unit/1 Ml SUBCUT 25 unit TIDAC EMMA Administration Insulin Glargine 80 unit 08/16/20 09:00 08/17/20 09:04 Insulin Glargine 100 Units/1 Ml SUBCUT 80 unit Q12H EMMA Administration Pregabalin 150 mg 08/16/20 09:00 08/16/20 17:43 Pregabalin 150 M g Capsule PO 150 mg BID EMMA Administration Fluticasone/Salmet jesse 1 puff 08/16/20 09:00 08/17/20 08:10 Fluticasone-Salm eterol 500-50 Disk us INHALATION 1 puff BID EMMA Administration Tramadol HCl 50 mg 08/16/20 01:11 08/16/20 13:01 Tramadol 50 Mg T ablet PO 50 mg TID PRN Administration pain Trazodone HCl 300 mg 08/16/20 21:00 08/16/20 21:44 Trazodone 150 Mg Tablet PO 300 mg BEDTIME EMMA Administration PFSH Anesthesia PFSH: Medical History (Updated 08/16/20 @ 16:04 by Quinton Mcduffie MD) Benign hypertension Crohn disease Diabetes Diabetic neuropathy History of DVT (deep vein thrombosis) History of pulmonary embolism Hyperlipidemia, mixed Insomnia PAD (peripheral artery disease) Surgical History (Updated 08/16/20 @ 16:04 by Quinton Mcduffie MD) Cardiac pacemaker H/O section x 1 H/O: hysterectomy / BSO Family History Other Diabetes Social History (Updated 08/16/20 @ 16:04 by Quinton Mcduffie MD) Smoking and tobacco status: current every day smoker cigarettes Packs smoked per day: 2.5 Years cigarettes smoked: 50 Alcohol intake: never Desire information about alcohol rehabilitation?: No Desire information about substance/drug rehabilitation?: No History of recent travel: No Current gender identity: Female Female Reproductive History: Spontaneous abortions: No Data Anesthesia CBC & Chem 7: 08/17/20 05:04 08/17/20 05:04 Other Labs: Laboratory Results - last 48 hr 08/15/20 08/15/20 08/15/20 20:43 20:43 20:43 WBC 15.3 H RBC 4.34 Hgb 11.6 Hct 35.1 L MCV 80.9 L MCH 26.7 L MCHC 33.0 RDW 16.4 H Plt Count 166 MPV Not Reportable Neut % (Auto) Lymph % (Auto) Not Reportable [place] % (Auto) Not Reportable Eos % (Auto) Baso % (Auto) Neut # (Auto) Lymph # (Auto) Not Reportable [place] # (Auto) Not Reportable Eos # (Auto) Baso # (Auto) Nucleated RBC % (auto) Total Counted 100 Atypical Lymphs % 0.0 Absolute Neutrophils 13.8 H Segmented Neutrophils 90 Abs Segm Neuts (Man) 13.8 H Band Neutrophils 0.0 Abs Band Neuts (Man) 0.0 Lymphocytes (Manual) 8 Monocytes (Manual) 1.0 Absolute Monocytes 0.2 Eosinophils (Manual) 1 Absolute Eosinophils 0.1 Basophils (Manual) 0.0 Absolute Basophils 0.0 Nucleated RBCs # Platelet Estimate Normal Dimorphic RBCs Hypochromasia Trace Poikilocytosis Ovalocytes Schistocytes Sodium 126 L Potassium 5.0 Chloride 86 L Carbon Dioxide 27 Anion Gap 18.0 BUN 33 H Creatinine 0.6 GFR Calculation 101.0 Glucose 663 H* POC Glucose Estimat Average Glucose Hemoglobin A1c Calculated Osmolality 301 H Lactic Acid 1.6 Calcium 9.4 Phosphorus Magnesium Total Bilirubin 0.5 AST 7 ALT 11 Alkaline Phosphatase 182 H Total Protein 7.0 Albumin 3.5 Globulin 3.5 Triglycerides Cholesterol LDL Cholesterol, Calc HDL Cholesterol LDL/HDL Ratio Cholesterol/HDL Ratio Lipase 8 L Procalcitonin TSH Urine Color Urine Appearance Urine pH Ur Specific [place] Urine Protein Urine Glucose (UA) Urine Ketones Urine Blood Urine Nitrate Urine Bilirubin Urine Urobilinogen Ur Leukocyte Esterase Urine RBC Urine WBC Ur Squamous Epith Cells Amorphous Sediment Urine Bacteria 08/15/20 08/16/20 08/16/20 23:10 00:19 04:26 WBC RBC Hgb Hct MCV MCH MCHC RDW Plt Count MPV Neut % (Auto) Lymph % (Auto) [place] % (Auto) Eos % (Auto) Baso % (Auto) Neut # (Auto) Lymph # (Auto) [place] # (Auto) Eos # (Auto) Baso # (Auto) Nucleated RBC % (auto) Total Counted Atypical Lymphs % Absolute Neutrophils Segmented Neutrophils Abs Segm Neuts (Man) Band Neutrophils Abs Band Neuts (Man) Lymphocytes (Manual) Monocytes (Manual) Absolute Monocytes Eosinophils (Manual) Absolute Eosinophils Basophils (Manual) Absolute Basophils Nucleated RBCs # Platelet Estimate Dimorphic RBCs Hypochromasia Poikilocytosis Ovalocytes Schistocytes Sodium 133 L Potassium 5.0 Chloride 94 L Carbon Dioxide 27 Anion Gap 17.0 BUN 24 H Creatinine 0.5 GFR Calculation 124.6 Glucose 362 H POC Glucose 379 394 Estimat Average Glucose Hemoglobin A1c Calculated Osmolality 295 Lactic Acid Calcium 8.8 Phosphorus Magnesium Total Bilirubin 0.5 AST 9 ALT 11 Alkaline Phosphatase 168 H Total Protein 5.9 L Albumin 3.3 L Globulin 2.6 Triglycerides Cholesterol LDL Cholesterol, Calc HDL Cholesterol LDL/HDL Ratio Cholesterol/HDL Ratio Lipase Procalcitonin TSH 2.04 Urine Color Urine Appearance Urine pH Ur Specific [place] Urine Protein Urine Glucose (UA) Urine Ketones Urine Blood Urine Nitrate Urine Bilirubin Urine Urobilinogen Ur Leukocyte Esterase Urine RBC Urine WBC Ur Squamous Epith Cells Amorphous Sediment Urine Bacteria 08/16/20 08/16/20 08/16/20 04:26 06:18 06:22 WBC RBC Hgb Hct MCV MCH MCHC RDW Plt Count MPV Neut % (Auto) Lymph % (Auto) [place] % (Auto) Eos % (Auto) Baso % (Auto) Neut # (Auto) Lymph # (Auto) [place] # (Auto) Eos # (Auto) Baso # (Auto) Nucleated RBC % (auto) Total Counted Atypical Lymphs % Absolute Neutrophils Segmented Neutrophils Abs Segm Neuts (Man) Band Neutrophils Abs Band Neuts (Man) Lymphocytes (Manual) Monocytes (Manual) Absolute Monocytes Eosinophils (Manual) Absolute Eosinophils Basophils (Manual) Absolute Basophils Nucleated RBCs # Platelet Estimate Dimorphic RBCs Hypochromasia Poikilocytosis Ovalocytes Schistocytes Sodium Potassium Chloride Carbon Dioxide Anion Gap BUN Creatinine GFR Calculation Glucose POC Glucose 371 Estimat Average Glucose Hemoglobin A1c Calculated Osmolality Lactic Acid Calcium Phosphorus Magnesium Total Bilirubin AST ALT Alkaline Phosphatase Total Protein Albumin Globulin Triglycerides 228 H Cholesterol 149 LDL Cholesterol, Calc 83 HDL Cholesterol 20 L LDL/HDL Ratio 4.15 H Cholesterol/HDL Ratio 7.45 H Lipase Procalcitonin 0.15 TSH Urine Color Yellow Urine Appearance Clear Urine pH 5.0 Ur Specific [place] 1.015 Urine Protein Neg Urine Glucose (UA) 4+ H Urine Ketones Negative Urine Blood 2+ H Urine Nitrate Negative Urine Bilirubin Neg Urine Urobilinogen Norm Ur Leukocyte Esterase Negative Urine RBC 0-4 H Urine WBC None Ur Squamous Epith Cells 10-15 H Amorphous Sediment Not Reportable Urine Bacteria Trace 08/16/20 08/16/20 08/16/20 10:33 11:58 11:58 WBC 16.4 H RBC 4.13 Hgb 11.1 L Hct 33.5 L MCV 81.1 MCH 26.9 L MCHC 33.1 RDW 16.4 H Plt Count 185 MPV Neut % (Auto) 84.1 Lymph % (Auto) 6.8 [place] % (Auto) 2.0 Eos % (Auto) 0.5 Baso % (Auto) 1.6 Neut # (Auto) 13.78 H Lymph # (Auto) 1.1 [place] # (Auto) 0.3 Eos # (Auto) 0.1 Baso # (Auto) 0.3 H Nucleated RBC % (auto) 0 Total Counted Atypical Lymphs % Absolute Neutrophils Segmented Neutrophils Abs Segm Neuts (Man) Band Neutrophils Abs Band Neuts (Man) Lymphocytes (Manual) Monocytes (Manual) Absolute Monocytes Eosinophils (Manual) Absolute Eosinophils Basophils (Manual) Absolute Basophils Nucleated RBCs # 0.0 Platelet Estimate Dimorphic RBCs 1+ H Hypochromasia Poikilocytosis 1+ H Ovalocytes 1+ H Schistocytes Trace Sodium Potassium Chloride Carbon Dioxide Anion Gap BUN Creatinine GFR Calculation Glucose POC Glucose 425 Estimat Average Glucose 255 Hemoglobin A1c 10.5 H Calculated Osmolality Lactic Acid Calcium Phosphorus Magnesium Total Bilirubin AST ALT Alkaline Phosphatase Total Protein Albumin Globulin Triglycerides Cholesterol LDL Cholesterol, Calc HDL Cholesterol LDL/HDL Ratio Cholesterol/HDL Ratio Lipase Procalcitonin TSH Urine Color Urine Appearance Urine pH Ur Specific [place] Urine Protein Urine Glucose (UA) Urine Ketones Urine Blood Urine Nitrate Urine Bilirubin Urine Urobilinogen Ur Leukocyte Esterase Urine RBC Urine WBC Ur Squamous Epith Cells Amorphous Sediment Urine Bacteria 08/16/20 08/16/20 08/17/20 16:46 20:01 05:04 WBC 12.6 H RBC 3.88 L Hgb 10.2 L Hct 32.1 L MCV 82.7 MCH 26.3 L MCHC 31.8 RDW 16.3 H Plt Count 176 MPV 10.6 H Neut % (Auto) 75.6 Lymph % (Auto) 13.5 [place] % (Auto) 2.2 Eos % (Auto) 0.7 Baso % (Auto) 1.9 Neut # (Auto) 9.48 H Lymph # (Auto) 1.7 [place] # (Auto) 0.3 Eos # (Auto) 0.1 Baso # (Auto) 0.2 H Nucleated RBC % (auto) 0 Total Counted Atypical Lymphs % Absolute Neutrophils Segmented Neutrophils Abs Segm Neuts (Man) Band Neutrophils Abs Band Neuts (Man) Lymphocytes (Manual) Monocytes (Manual) Absolute Monocytes Eosinophils (Manual) Absolute Eosinophils Basophils (Manual) Absolute Basophils Nucleated RBCs # 0.0 Platelet Estimate Dimorphic RBCs Hypochromasia Poikilocytosis Ovalocytes Schistocytes Sodium Potassium Chloride Carbon Dioxide Anion Gap BUN Creatinine GFR Calculation Glucose POC Glucose 171 141 Estimat Average Glucose Hemoglobin A1c Calculated Osmolality Lactic Acid Calcium Phosphorus Magnesium Total Bilirubin AST ALT Alkaline Phosphatase Total Protein Albumin Globulin Triglycerides Cholesterol LDL Cholesterol, Calc HDL Cholesterol LDL/HDL Ratio Cholesterol/HDL Ratio Lipase Procalcitonin TSH Urine Color Urine Appearance Urine pH Ur Specific [place] Urine Protein Urine Glucose (UA) Urine Ketones Urine Blood Urine Nitrate Urine Bilirubin Urine Urobilinogen Ur Leukocyte Esterase Urine RBC Urine WBC Ur Squamous Epith Cells Amorphous Sediment Urine Bacteria 08/17/20 08/17/20 08/17/20 05:04 05:04 05:04 WBC RBC Hgb Hct MCV MCH MCHC RDW Plt Count MPV Neut % (Auto) Lymph % (Auto) [place] % (Auto) Eos % (Auto) Baso % (Auto) Neut # (Auto) Lymph # (Auto) [place] # (Auto) Eos # (Auto) Baso # (Auto) Nucleated RBC % (auto) Total Counted Atypical Lymphs % Absolute Neutrophils Segmented Neutrophils Abs Segm Neuts (Man) Band Neutrophils Abs Band Neuts (Man) Lymphocytes (Manual) Monocytes (Manual) Absolute Monocytes Eosinophils (Manual) Absolute Eosinophils Basophils (Manual) Absolute Basophils Nucleated RBCs # Platelet Estimate Dimorphic RBCs Hypochromasia Poikilocytosis Ovalocytes Schistocytes Sodium 133 L Potassium 3.9 Chloride 97 L Carbon Dioxide 26 Anion Gap 13.9 BUN 14 Creatinine 0.4 L GFR Calculation 161.2 H Glucose 211 H POC Glucose Estimat Average Glucose Hemoglobin A1c Calculated Osmolality 283 L Lactic Acid Calcium 8.1 L Phosphorus 3.1 Magnesium 1.7 Total Bilirubin 0.4 AST 7 ALT 8 Alkaline Phosphatase 130 H Total Protein 5.9 L Albumin 2.7 L Globulin 3.2 Triglycerides Cholesterol LDL Cholesterol, Calc HDL Cholesterol LDL/HDL Ratio Cholesterol/HDL Ratio Lipase Procalcitonin 0.08 TSH 1.79 Urine Color Urine Appearance Urine pH Ur Specific [place] Urine Protein Urine Glucose (UA) Urine Ketones Urine Blood Urine Nitrate Urine Bilirubin Urine Urobilinogen Ur Leukocyte Esterase Urine RBC Urine WBC Ur Squamous Epith Cells Amorphous Sediment Urine Bacteria 08/17/20 06:38 WBC RBC Hgb Hct MCV MCH MCHC RDW Plt Count MPV Neut % (Auto) Lymph % (Auto) [place] % (Auto) Eos % (Auto) Baso % (Auto) Neut # (Auto) Lymph # (Auto) [place] # (Auto) Eos # (Auto) Baso # (Auto) Nucleated RBC % (auto) Total Counted Atypical Lymphs % Absolute Neutrophils Segmented Neutrophils Abs Segm Neuts (Man) Band Neutrophils Abs Band Neuts (Man) Lymphocytes (Manual) Monocytes (Manual) Absolute Monocytes Eosinophils (Manual) Absolute Eosinophils Basophils (Manual) Absolute Basophils Nucleated RBCs # Platelet Estimate Dimorphic RBCs Hypochromasia Poikilocytosis Ovalocytes Schistocytes Sodium Potassium Chloride Carbon Dioxide Anion Gap BUN Creatinine GFR Calculation Glucose POC Glucose 216 Estimat Average Glucose Hemoglobin A1c Calculated Osmolality Lactic Acid Calcium Phosphorus Magnesium Total Bilirubin AST ALT Alkaline Phosphatase Total Protein Albumin Globulin Triglycerides Cholesterol LDL Cholesterol, Calc HDL Cholesterol LDL/HDL Ratio Cholesterol/HDL Ratio Lipase Procalcitonin TSH Urine Color Urine Appearance Urine pH Ur Specific [place] Urine Protein Urine Glucose (UA) Urine Ketones Urine Blood Urine Nitrate Urine Bilirubin Urine Urobilinogen Ur Leukocyte Esterase Urine RBC Urine WBC Ur Squamous Epith Cells Amorphous Sediment Urine Bacteria Micro: Microbiology 08/15/20 20:43 Blood Culture - Preliminary Blood NEGATIVE TO DATE Cardiac Studies: No Data to Display
[2020-08-17] MEDS: midazolam 1 mg/mL INJ 2 mL 2 MG IVP (10:40)
[2020-08-17 10:55] LABS: Glucose Point of Care 89 mg/dL (70-110)
[2020-08-17] MEDS: dextrose 50% syringe 50 mL (11:05)
[2020-08-17] MEDS: silver sulfadiazine cream 1% 50 gm 1 APPLIC TOPICAL (11:15)
--- NOTE | 2020-08-17 11:18 | PM.OP ---
Operative Report Date of procedure: August 17, 2020 Pre-op Diagnosis: Abdominal wall wound with probable underlying abscess. Post-op Diagnosis: Abdominal wall wound with underlying abscess. Procedure Done: Sharp debridement of 25 cm? of abdominal wall with drainage of underlying abscess. Specimens removed/disposition: Aerobic and anaerobic abscess cultures. Surgeon: Quinton Mcduffie Anesthesia: General Estimated blood loss (mL): 10 Complications: None. Condition: stable Disposition: PACU Procedure: The patient was brought to the operating room and was placed in a supine position on the operating room table. General anesthesia was induced by means of a laryngeal mask airway. The abdomen was prepped and draped in a sterile fashion. The necrotic overlying tissue on the wound was sharply excised down into and including some of the subcutaneous layer down to healthy tissue. This entailed the removal of about 25 cm? of skin and underlying subcutaneous tissue over the oval shaped wound. An underlying abscess cavity was found extending posteriorly and medially as well as superiorly and laterally. The opening to the abscess cavity was elongated sharply laterally with a pair of Metzenbaum scissors and all of the purulent material was suctioned out after aerobic and anaerobic cultures were taken. Loculations in the abscess cavity were then broken up with a finger and then the abscess cavity and overlying wound were extensively irrigated with the Pulsavac irrigation system. Small bleeding points at the skin level were controlled with cautery at the edge of the wound. Some Silvadene was placed in the abscess cavity and over the wound, and then the wound was packed with wet-to-dry Kerlix. An absorptive dressing was placed over the wound and the patient was taken to the recovery area in stable condition postoperatively.
[2020-08-17 11:34] LABS: Glucose Point of Care 148 mg/dL (70-110)
--- NOTE | 2020-08-17 11:37 | SUR.OPER ---
Dr Mcduffie aware of silver allergy.
--- NOTE | 2020-08-17 11:39 | SUR.PHASEI ---
1139-ORAL AIRWAY OUT, SIMPLE MASK AT 8LPM SAT 99%
--- NOTE | 2020-08-17 12:00 | PC.NURSE ---
pt back on floor from surgery
[2020-08-17] MEDS: fluoxetine 20 mg Capsule PO (12:03)
[2020-08-17] MEDS: multivitamin therapeutic Tablet 1 TAB PO (12:03)
[2020-08-17] MEDS: pregabalin 150 mg Capsule PO ×2 (12:03→17:46)
[2020-08-17] MEDS: thiamine 100 mg Tablet PO (12:03)
[2020-08-17] MEDS: folic acid 1 mg Tablet PO (12:03)
[2020-08-17 13:31] LABS: Vancomycin Trough 14.1 ug/mL (10-15)
--- NOTE | 2020-08-17 13:43 | ANE.PACU2 ---
Inpatient post-anesthesia follow up: Vital signs: Temperature 97.6 F Pulse Rate [Left] 103 Pulse Rate 73 Respiratory Rate 16 Blood Pressure [Le ft Arm] 122/72 Blood Pressure 102/60 Pulse Oximetry 96 Oxygen Delivery Me thod [ Nasal Cannula Current Rate & Del drew] Oxygen Delivery Me thod Room Air Oxygen Flow Rate [ Current Rate 2 & Delivery] Oxygen Flow Rate 8 Fraction of Inspir ed Oxygen Hydration adequate: Yes Nausea and vomiting: No Pain level: 3 Mental status: Baseline
[2020-08-17] MEDS: HYDROmorphone 1 mg/mL INJ 1 mL 0.5 MG IVP ×2 (13:58→20:04)
--- NOTE | 2020-08-17 14:44 | PM.PN ---
Subjective Subjective: Interval history: This morning patient was examined, she is laying in bed, no fevers, no chills, no nausea, no vomiting, still having discharge from right lower quadrant cellulitis site, a bit anxious about debridement Vitals/I&O/Wt Last Vital Signs Temp 97.6 F 08/17/20 14:03 Pulse 77 08/17/20 14:03 Resp 16 08/17/20 14:03 BP 111/56 08/17/20 14:03 Pulse Ox 95 08/17/20 14:03 08/16/20 08/17/20 08/17/20 22:59 06:59 14:59 Intake Total 1590 / 2684.167 1939 Output Total Balance 1590 / 2684.167 1929 Weight last 48 hrs Weight 93.168 kg Weight 87.498 kg Weight 84.822 kg Physical Exam Const: COMMON NORMALS: no acute distress and patient oriented x3 Neck/C-Spine: COMMON NORMALS: no JVD Resp: COMMON NORMALS: normal respiratory effort, No retractions, No use of accessory muscles and clear to auscultation bilaterally AUSCULTATION: clear to auscultation bilaterally Cardio: COMMON NORMALS: no JVD, regular rate, regular rhythm, S1 normal heart sound present and S2 normal heart sound present RATE: regular rate RHYTHM: regular rhythm HEART SOUNDS: S1 normal heart sound present and S2 normal heart sound present GI: COMMON NORMALS: Normal to inspection, nondistended, normoactive bowel sounds present, Soft to palpation, non-tender, No hepatosplenomegaly present, no masses and no bruits PALPATION: Yes Soft to palpation and Yes No hepatosplenomegaly present Extremity: COMMON NORMALS: capillary refill normal, no clubbing, cyanosis or edema, no calf tenderness and no pedal edema Neuro: COMMON NORMALS: patient oriented x3 Psych: COMMON NORMALS: mental status grossly normal Skin: NARRATIVE SKIN EXAM: Right lower quadrant abdomen, open excoriation, 2 x 3 cm, round, with active drainage, purulence, serous, some fluctuance Data : 08/17/20 05:04 08/17/20 05:04 Micro: Microbiology 08/15/20 20:43 Blood Culture - Preliminary Blood NEGATIVE TO DATE A&P Assessment and plan (1) Cellulitis: -Right lower quadrant abdomen, brown recluse spider bite, now with extensive cellulitis, purulent drainage -Has failed outpatient antibiotic therapy -Status post debridement by Dr. Mcduffie, postop day 0 -Poorly controlled type 2 diabetes, smoker -Currently on vancomycin and Zosyn -Cultures obtained, surgical cultures obtained -General surgery on consult Status: Acute (2) Sepsis: Sepsis secondary to: Abdominal RLQ : Cellulitis Patient is giving history of subjective fever at home, has leukocytosis, and has a source, she meets sepsis criteria. Pro-Beto 0.015 lactic acid 1.6 Wound culture/blood culture Continue Vanco and Zosyn for now Status: Acute (3) Spider bite: Status: Acute (4) Hyperglycemia: Has received 10 units of regular insulin in the ER. Continue home insulin Lantus 80 units twice daily, with aspart 25 units 3 times daily Diabetic diet Monitor fingerstick glucose HbA1c Lipid profile TSH Status: Acute (5) Diabetes: Continue medium dose sliding scale insulin Status: Acute (6) Benign hypertension: Currently normotensive. We will continue to monitor blood pressure for now. Status: Acute (7) History of pulmonary embolism: -History of DVT and PE over a year ago -On Eliquis Status: Acute Additional A&P Information Pseudohyponatremia: 133 DVT prophylaxis: On Eliquis CODE STATUS: Full code Disposition: Discharged to home Attestations Medical Necessity Statement*: Patient requires hospitalization for right lower extremity cellulitis Coding Level of Care Code Acute Purchasing Manager/Sales for [facility] Diagnoses Cellulitis L03.90 Sepsis A41.9 Spider bite T63.301A Hyperglycemia R73.9 Diabetes E11.9 Benign hypertension I10 History of pulmonary embolism Z86.711
[2020-08-17 16:21] LABS: Glucose Point of Care 509 mg/dL (70-110)
[2020-08-17 16:21] LABS: Glucose Point of Care 501 mg/dL (70-110)
--- NOTE | 2020-08-17 16:28 | PC.NURSE ---
pt blood sugar [address] Hernández orders to recheck in 1hr
[2020-08-17 17:39] LABS: Glucose Point of Care 386 mg/dL (70-110)
[2020-08-17] MEDS: TRAMadol 50 mg Tablet PO (17:46)
[2020-08-17] MEDS: trazodone 150 mg Tablet 300 MG PO (20:04)
[2020-08-17 20:52] LABS: Glucose Point of Care 223 mg/dL (70-110)
[2020-08-18] VITALS (9 sets, daily range): BP systolic 101–146; BP diastolic 54–69; PULSE 82–95; RESP 18; TEMP 36.6–37.1; O2SAT 90–93
[2020-08-18] MEDS: vancomycin 1,500 MG/300 ML PIGGYBACK 200 MG IV ×2 (02:39→12:30)
[2020-08-18] MEDS: sodium chloride 0.9% 1,000 ML 125 ML IV ×2 (02:40→09:25)
[2020-08-18] MEDS: piperacillin-tazobactam 3.375 GM in sodium chloride 0.9% (plus) 50 ML IV ×3 (05:17→21:22)
[2020-08-18] MEDS: LORazepam 2 mg Tablet PO (05:17)
[2020-08-18] MEDS: HYDROmorphone 1 mg/mL INJ 1 mL 0.5 MG IVP (05:35)
[2020-08-18 06:14] LABS: Glucose Point of Care 197 mg/dL (70-110)
[2020-08-18] MEDS: multivitamin therapeutic Tablet 1 TAB PO (08:38)
[2020-08-18] MEDS: thiamine 100 mg Tablet PO (08:38)
[2020-08-18] MEDS: insulin glargine 100 units/1 mL 80 UNIT SUBCUT ×2 (08:38→21:22)
[2020-08-18] MEDS: fluoxetine 20 mg Capsule PO (08:38)
[2020-08-18] MEDS: pregabalin 150 mg Capsule PO ×2 (08:38→17:54)
[2020-08-18] MEDS: folic acid 1 mg Tablet PO (08:38)
--- NOTE | 2020-08-18 09:50 | PC.RESP ---
SMOKING CESSATION INFORMATION SENT TO PATIENT.
[2020-08-18 10:23] LABS: Procalcitonin 0.05 ng/mL (0-0.5)
[2020-08-18 10:37] LABS: Alanine Aminotransferase 7 U/L (0-33); Albumin Level 2.7 g/dL (3.5-5.2); Alkaline Phosphatase 123 IU/L (35-105); Aspartate Amino Transferase 8 U/L (0-32); Blood Urea Nitrogen 6 mg/dL (8-23); C Reactive Protein 96.7 mg/L (0.0-4.9); Calcium 7.8 mg/dL (8.5-10.5); Carbon Dioxide 24 mmol/L (22-29); Chloride 101 mmol/L (98-107); Globulin 2.4 g/dL (1.3-4.6); Glomerular Filtration Rate 161.2 mL/min (90-130); Glucose 95 mg/dL (65-115); Magnesium 1.7 mg/dL (1.7-2.3); Osmolality Calculated 277 mOsm/kg (285-295); Phosphorus 2.6 mg/dL (2.5-4.5); Sodium 135 mmol/L (136-145); Total Bilirubin 0.4 mg/dL (0.15-1.2); Total Protein 5.1 g/dL (6.6-8.7)
[2020-08-18 10:41] LABS: Anion Gap 14.5 (5-19); Potassium 4.5 mmol/L (3.5-5.1)
[2020-08-18 11:18] LABS: Glucose Point of Care 78 mg/dL (70-110)
[2020-08-18 12:47] LABS: Basophils # 0.2 10^3/uL (0.0-0.1); Basophils % 1.9 %; Eosinophils % 0.2 %; Hematocrit 32.8 % (37.0-47.0); Hemoglobin 10.8 g/dL (11.5-15.3); Lymphocytes # 0.8 10^3/uL (0.8-4.8); Lymphocytes % 6.5 %; Mean Corpuscular HGB Conc 32.9 g/dL (30.0-36.0); Mean Corpuscular Hemoglobin 26.5 pg (28.0-34.0); Mean Corpuscular Volume 80.6 fL (81-99); Monocytes # 0.3 10^3/uL (0.2-0.9); Monocytes % 2.3 %; Neutrophils # 10.17 10^3/uL (1.8-7.7); Nucleated Red Blood Cells % 0 %; Platelet Count 197 10^3/cmm (130-400); Red Blood Count 4.07 10^6/uL (4.1-5.3); Red Cell Distribution Width 16.5 % (12.1-15.1)
[2020-08-18 13:21] LABS: Slide Review Slide Review Perform
[2020-08-18 13:22] LABS: White Blood Count 12.1 10^3/uL (4.0-10.0)
--- NOTE | 2020-08-18 13:54 | PM.PN ---
Subjective Subjective: Interval history: The patient says she feels so much better than she did before her abdominal wall abscess was drained. She says she feels like she could get up and jog now. She is concerned that she is being told to take her Dilaudid every 6 hours and does not feel like she needs to. Vitals/I&O/Wt Last Vital Signs Temp 97.8 F 08/18/20 11:38 Pulse 89 08/18/20 11:38 Resp 18 08/18/20 11:38 BP 101/54 08/18/20 11:38 Pulse Ox 90 08/18/20 11:38 08/17/20 08/18/20 08/18/20 22:59 06:59 14:59 Intake Total 1748.75 / 4688.75 1000 / 4688.75 1313.75 / 1313.75 Output Total 450 / 460 Balance 1748.75 / 4228.75 550 / 4228.75 1313.75 / 1313.75 Weight last 48 hrs Weight 216 lb 8 oz Weight 205 lb 6.4 oz Physical Exam Narrative: EXAM NARRATIVE: The current dressing has a little bit of drainage on it but remains intact. The corner of the dressing was lifted up and almost all of the patient's erythema and edema has already resolved. Data : 08/18/20 12:12 08/18/20 09:36 Micro: Microbiology 08/17/20 11:05 Gram Stain - Final Abdomen Abscess Culture - Preliminary Staphylococcus aureus 08/16/20 06:30 Wound Culture - Preliminary Abdomen Staphylococcus aureus 08/15/20 20:43 Gram Stain - Final Abdomen Wound Culture - Preliminary Staphylococcus aureus A&P Assessment and plan (1) Abdominal wall abscess: Status post debridement and drainage of abdominal wall abscess on 08/17/2020. Continue daily packing. Cultures to date show Staphylococcus. The patient continues on vancomycin and Zosyn. Discontinue Dilaudid. Try [place] for pain relief. The patient may need home health for dressing changes at home. Status: Acute Attestations Medical Necessity Statement*: See admitting service's notation. Coding Level of Care Code Acute Medical Records Specialist for Donna Gutierrez Diagnoses Abdominal wall abscess L02.211
--- NOTE | 2020-08-18 15:20 | P.PN_ITS ---
Subjective Subjective: Interval history: This morning patient was examined, she continues to have mild pain around packing site, overall doing better, no fevers, chills, nausea, vomiting Vitals/I&O/Wt Last Vital Signs Temp 97.8 F 08/18/20 11:38 Pulse 89 08/18/20 11:38 Resp 18 08/18/20 11:38 BP 101/54 08/18/20 11:38 Pulse Ox 90 08/18/20 11:38 08/18/20 08/18/20 08/18/20 06:59 14:59 22:59 Intake Total 1000 / 4688.75 1313.75 / 1313.75 Output Total 450 / 460 Balance 550 / 4228.75 1313.75 / 1313.75 Weight last 48 hrs Weight 98.203 kg Weight 93.168 kg Physical Exam Const: COMMON NORMALS: no acute distress and patient oriented x3 HENMT: COMMON NORMALS: normocephalic HEAD & SCALP: normocephalic Neck/C-Spine: COMMON NORMALS: no JVD Resp: COMMON NORMALS: normal respiratory effort, No retractions, No use of accessory muscles and clear to auscultation bilaterally AUSCULTATION: clear to auscultation bilaterally Cardio: COMMON NORMALS: no JVD, regular rate, regular rhythm, S1 normal heart sound present and S2 normal heart sound present RATE: regular rate RHYTHM: regular rhythm HEART SOUNDS: S1 normal heart sound present and S2 normal heart sound present GI: COMMON NORMALS: Normal to inspection, nondistended, normoactive bowel sounds present, Soft to palpation, non-tender, No hepatosplenomegaly present, no masses and no bruits PALPATION: Yes Soft to palpation and Yes No hepatosplenomegaly present Extremity: COMMON NORMALS: capillary refill normal, no clubbing, cyanosis or edema, no calf tenderness and no pedal edema Neuro: COMMON NORMALS: patient oriented x3 Psych: COMMON NORMALS: mental status grossly normal Skin: NARRATIVE SKIN EXAM: Area of cellulitis, significantly reduced, under marked borders, packed, minimal drainage Data : 08/18/20 12:12 08/18/20 09:36 Micro: Microbiology 08/17/20 11:05 Gram Stain - Final Abdomen Abscess Culture - Preliminary Staphylococcus aureus 08/15/20 20:43 Gram Stain - Final Abdomen Wound Culture - Preliminary Methicillin Resis Staph Aureus 08/16/20 06:30 Wound Culture - Preliminary Abdomen Methicillin Resis Staph Aureus A&P Assessment and plan (1) Cellulitis: -Right lower quadrant abdomen, brown recluse spider bite, now with extensive cellulitis, purulent drainage -Has failed outpatient antibiotic therapy -Status post debridement by Dr. Mcduffie, postop day 1 -Poorly controlled type 2 diabetes, smoker -Currently on vancomycin and Zosyn -Cultures obtained, surgical cultures obtained so far show MRSA -General surgery on consult Plan: Ensure negative blood cultures for 48 hours, follow culture results, likely discharge tomorrow on p.o. doxy and Augmentin Status: Acute (2) Sepsis: Sepsis secondary to: Abdominal RLQ : Cellulitis Patient is giving history of subjective fever at home, has leukocytosis, and has a source, she meets sepsis criteria. Pro-Beto 0.015 lactic acid 1.6 Wound culture/blood culture Continue Vanco and Zosyn for now Status: Acute (3) Spider bite: Status: Acute (4) Hyperglycemia: Has received 10 units of regular insulin in the ER. Continue home insulin Lantus 80 units twice daily, with aspart 25 units 3 times daily Diabetic diet Monitor fingerstick glucose HbA1c Lipid profile TSH Status: Acute (5) Diabetes: Continue medium dose sliding scale insulin Status: Acute (6) Benign hypertension: Currently normotensive. We will continue to monitor blood pressure for now. 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
[2020-08-18 17:18] LABS: Glucose Point of Care 389 mg/dL (70-110)
[2020-08-18 20:38] LABS: Glucose Point of Care 250 mg/dL (70-110)
[2020-08-18] MEDS: trazodone 150 mg Tablet 300 MG PO (21:23)
[2020-08-18] MEDS: HYDROcodone-acetaminophen 5-325 mg Tablet PO (22:43)
[2020-08-19] VITALS (7 sets, daily range): BP systolic 103–119; BP diastolic 60–67; PULSE 52–93; RESP 18–20; TEMP 36.6–37.2; O2SAT 92–95
[2020-08-19] MEDS: sodium chloride 0.9% 1,000 ML 125 ML IV (02:08)
[2020-08-19] MEDS: vancomycin 1,500 MG/300 ML PIGGYBACK 200 MG IV (02:09)
[2020-08-19] MEDS: piperacillin-tazobactam 3.375 GM in sodium chloride 0.9% (plus) 50 ML IV (05:21)
[2020-08-19] MEDS: HYDROcodone-acetaminophen 5-325 mg Tablet PO ×2 (05:24→14:50)
[2020-08-19 05:38] LABS: Basophils # 0.1 10^3/uL (0.0-0.1); Basophils % 1.4 %; Eosinophils # 0.1 10^3/uL (0.0-0.8); Eosinophils % 0.9 %; Hemoglobin 8.9 g/dL (11.5-15.3); Lymphocytes # 1.8 10^3/uL (0.8-4.8); Lymphocytes % 20.7 %; Mean Corpuscular Hemoglobin 26.8 pg (28.0-34.0); Mean Corpuscular Volume 81.3 fL (81-99); Monocytes # 0.2 10^3/uL (0.2-0.9); Monocytes % 2.3 %; Neutrophils # 6.17 10^3/uL (1.8-7.7); Neutrophils % 71.7 %; Nucleated Red Blood Cells % 0 %; Platelet Count 181 10^3/cmm (130-400); Red Blood Count 3.32 10^6/uL (4.1-5.3); Red Cell Distribution Width 16.8 % (12.1-15.1); White Blood Count 8.6 10^3/uL (4.0-10.0)
[2020-08-19 06:01] LABS: C Reactive Protein 89.3 mg/L (0.0-4.9); Magnesium 1.8 mg/dL (1.7-2.3); Phosphorus 2.5 mg/dL (2.5-4.5)
[2020-08-19 06:02] LABS: Alanine Aminotransferase < 5 U/L (0-33); Albumin Level 2.3 g/dL (3.5-5.2); Alkaline Phosphatase 102 IU/L (35-105); Anion Gap 9.5 (5-19); Aspartate Amino Transferase 5 U/L (0-32); Blood Urea Nitrogen 11 mg/dL (8-23); Calcium 7.8 mg/dL (8.5-10.5); Carbon Dioxide 25 mmol/L (22-29); Chloride 107 mmol/L (98-107); Globulin 2.8 g/dL (1.3-4.6); Glomerular Filtration Rate 161.2 mL/min (90-130); Glucose 90 mg/dL (65-115); Osmolality Calculated 285 mOsm/kg (285-295); Potassium 3.5 mmol/L (3.5-5.1); Sodium 138 mmol/L (136-145); Total Bilirubin 0.3 mg/dL (0.15-1.2); Total Protein 5.1 g/dL (6.6-8.7)
[2020-08-19 06:59] LABS: Slide Review Slide Review Perform
[2020-08-19 07:24] LABS: Glucose Point of Care 85 mg/dL (70-110)
--- NOTE | 2020-08-19 09:04 | P.PN_ITS ---
Subjective Subjective: Interval history: The patient continues to feel much better than she did prior to surgery. Vitals/I&O/Wt Last Vital Signs Temp 97.8 F 08/19/20 07:53 Pulse 52 L 08/19/20 08:20 Resp 18 08/19/20 08:20 BP 119/67 08/19/20 07:53 Pulse Ox 92 08/19/20 08:20 08/18/20 08/19/20 08/19/20 22:59 06:59 14:59 Intake Total 2070 / 4213.75 530 / 4213.75 440 / 440 Output Total 800 / 1000 200 / 1000 Balance 1270 / 3213.75 330 / 3213.75 440 / 440 Weight last 48 hrs Weight 221 lb 8 oz Weight 216 lb 8 oz Physical Exam Narrative: EXAM NARRATIVE: The dressing was reportedly changed during the night for some drainage on the secondary dressing. It has a little bit of saturation now but not all the way through. The surrounding skin still has some mild erythema and induration but it is much improved compared to what it was preoperatively. Data : 08/19/20 05:07 08/19/20 05:07 Micro: Microbiology 08/15/20 20:43 Gram Stain - Final Abdomen Wound Culture - Final Methicillin Resis Staph Aureus 08/16/20 06:30 Wound Culture - Final Abdomen Methicillin Resis Staph Aureus 08/17/20 11:05 Gram Stain - Final Abdomen Anaerobic Culture - Preliminary Abscess Culture - Preliminary Methicillin Resis Staph Aureus A&P Assessment and plan (1) Abdominal wall abscess: Status post debridement and drainage of abdominal wall abscess on 08/17/2020. WBC is back down to normal. Cultures show MRSA. Continue daily packing. Start oral Bactrim in anticipation of discharge in the near future. The patient would be a good candidate to follow-up in the wound clinic, as this will take some time to heal completely, especially with the debridement of the overlying skin. Whether she will need home health in the interim to assist with daily wound packing might still be an issue. Status: Acute Attestations Medical Necessity Statement*: See admitting service's notation. Coding Level of Care Code Acute Client Manager [employer] for Philipp Matt Diagnoses Abdominal wall abscess L02.211
[2020-08-19] MEDS: thiamine 100 mg Tablet PO (09:11)
[2020-08-19] MEDS: folic acid 1 mg Tablet PO (09:11)
[2020-08-19] MEDS: pregabalin 150 mg Capsule PO (09:11)
[2020-08-19] MEDS: fluoxetine 20 mg Capsule PO (09:11)
[2020-08-19] MEDS: multivitamin therapeutic Tablet 1 TAB PO (09:11)
[2020-08-19] MEDS: insulin glargine 100 units/1 mL 80 UNIT SUBCUT (09:14)
[2020-08-19 10:35] LABS: Procalcitonin 0.05 ng/mL (0-0.5)
[2020-08-19 10:51] LABS: Glucose Point of Care 167 mg/dL (70-110)
--- NOTE | 2020-08-19 11:34 | PM.DCS ---
Discharge Providers Date of Admission: 08/15/20 23:17 Date of Discharge: August 19, 2020 Attending Provider at Admission: Winston Bishop MD Attending Provider at Discharge: Viet Hernández MD Primary Care Provider: Rosie Hidalgo DO Diagnoses at Discharge Discharge Diagnosis (1) Abdominal wall abscess: Status: Acute Reason for Visit Reason for Visit: Spider Bite on ABD/Enlarged over two wk span Hospital Course Hospital Course This is a 65-year-old female with past medical history of COPD, current smoker, poorly controlled type 2 diabetes mellitus, insulin-dependent, hypertension, history of DVT on Eliquis who presents [facility] due to abdominal wall cellulitis after a brown recluse spider bite Patient has failed outpatient antibiotic therapy with clindamycin, brown recluse spider bite with surrounding cellulitis, was admitted to general medical floors, received broad-spectrum antibiotic therapy, had a surgical debridement by Dr. Mcduffie, wound cultures grew MRSA, patient clinically improved. Patient will be discharged on a 2-week course of Bactrim and Augmentin, she has a 2 x 2 centimeter area that has been debrided, packe, with dressing on top. We will teach her and her boyfriend for daily packing changes, daily dressing changes, follow-up with wound care in 1 week. Patient was also advised to monitor blood sugars carefully, her blood sugar should be between 150-200, if her blood sugars are not well controlled her wound will not heal well. Patient was advised to adhere to a strict diabetic diet. In addition she was advised to quit smoking, as this could hinder wound healing. Patient on discharge hemoglobin was 8.9, she is on Eliquis for DVT PE, no hemodynamic compromise, no bloody or black stools, I suspect is related to the IV fluids that she was receiving, repeat CBC in 1 week. Come back to the emergency room if she were to have bloody or black stools, or lightheadedness or dizziness. Physical Exam Const: COMMON NORMALS: no acute distress and patient oriented x3 HENMT: COMMON NORMALS: normocephalic HEAD & SCALP: normocephalic Neck/C-Spine: COMMON NORMALS: no JVD Resp: COMMON NORMALS: normal respiratory effort, No retractions, No use of accessory muscles and clear to auscultation bilaterally AUSCULTATION: clear to auscultation bilaterally Cardio: COMMON NORMALS: no JVD, regular rate, regular rhythm, S1 normal heart sound present and S2 normal heart sound present RATE: regular rate RHYTHM: regular rhythm HEART SOUNDS: S1 normal heart sound present and S2 normal heart sound present GI: COMMON NORMALS: Normal to inspection, nondistended, normoactive bowel sounds present, Soft to palpation, non-tender, No hepatosplenomegaly present, no masses and no bruits PALPATION: Yes Soft to palpation and Yes No hepatosplenomegaly present Extremity: COMMON NORMALS: capillary refill normal, no clubbing, cyanosis or edema, no calf tenderness and no pedal edema Neuro: COMMON NORMALS: patient oriented x3 Psych: COMMON NORMALS: mental status grossly normal Skin: NARRATIVE SKIN EXAM: Abdominal wall cellulitis looks significantly improved, packing present, erythema significantly improved Discharge Data Data Completed and Pending: Completed Studies During Hospitalization Category Date Time Status CT abdomen pelvis w con* [id number] Urge nt Cat Scan 08/15/20 20:24 Completed XR chest 1V antoinette ble [id number] Routine Exams 08/16/20 06:00 Completed Pending at discharge Category Date Time Status Abscess Culture a nd Gram Stain Stat Lab 08/17/20 11:05 Results Anaerobic Culture Stat Lab 08/17/20 11:05 Results Blood Culture Sta t Lab 08/15/20 20:43 Results C Reactive Protei n AM LABS Lab 08/20/20 04:00 Ordered Procalcitonin AM LABS Lab 08/20/20 04:00 Ordered Vancomycin Trough Timed Lab 08/19/20 12:30 Ordered Labs from last 24 hours 08/19/20 08/19/20 08/19/20 10:42 07:16 05:07 WBC RBC Hgb Hct MCV MCH MCHC RDW Plt Count MPV Neut % (Auto) Lymph % (Auto) [place] % (Auto) Eos % (Auto) Baso % (Auto) Neut # (Auto) Lymph # (Auto) [place] # (Auto) Eos # (Auto) Baso # (Auto) Nucleated RBC % (a uto) Nucleated RBCs # Sodium Potassium Chloride Carbon Dioxide Anion Gap BUN Creatinine GFR Calculation Glucose POC Glucose 167 85 Calculated Osmolal ity Calcium Phosphorus 2.5 Magnesium 1.8 Total Bilirubin AST ALT Alkaline Phosphata se C-Reactive Protein Total Protein Albumin Globulin Procalcitonin 08/19/20 08/19/20 08/19/20 05:07 05:07 05:07 WBC RBC Hgb Hct MCV MCH MCHC RDW Plt Count MPV Neut % (Auto) Lymph % (Auto) [place] % (Auto) Eos % (Auto) Baso % (Auto) Neut # (Auto) Lymph # (Auto) [place] # (Auto) Eos # (Auto) Baso # (Auto) Nucleated RBC % (a uto) Nucleated RBCs # Sodium 138 Potassium 3.5 Chloride 107 Carbon Dioxide 25 Anion Gap 9.5 BUN 11 Creatinine 0.4 L GFR Calculation 161.2 H Glucose 90 POC Glucose Calculated Osmolal ity 285 Calcium 7.8 L Phosphorus Magnesium Total Bilirubin 0.3 AST 5 ALT < 5 Alkaline Phosphata se 102 C-Reactive Protein 89.3 H Total Protein 5.1 L Albumin 2.3 L Globulin 2.8 Procalcitonin 0.05 08/19/20 08/18/20 08/18/20 05:07 20:21 16:48 WBC 8.6 RBC 3.32 L Hgb 8.9 L Hct 27.0 L MCV 81.3 MCH 26.8 L MCHC 33.0 RDW 16.8 H Plt Count 181 MPV Not Reportable Neut % (Auto) 71.7 Lymph % (Auto) 20.7 [place] % (Auto) 2.3 Eos % (Auto) 0.9 Baso % (Auto) 1.4 Neut # (Auto) 6.17 Lymph # (Auto) 1.8 [place] # (Auto) 0.2 Eos # (Auto) 0.1 Baso # (Auto) 0.1 Nucleated RBC % (a uto) 0 Nucleated RBCs # 0.0 Sodium Potassium Chloride Carbon Dioxide Anion Gap BUN Creatinine GFR Calculation Glucose POC Glucose 250 389 Calculated Osmolal ity Calcium Phosphorus Magnesium Total Bilirubin AST ALT Alkaline Phosphata se C-Reactive Protein Total Protein Albumin Globulin Procalcitonin 08/18/20 12:12 WBC 12.1 H RBC 4.07 L Hgb 10.8 L Hct 32.8 L MCV 80.6 L MCH 26.5 L MCHC 32.9 RDW 16.5 H Plt Count 197 MPV Not Reportable Neut % (Auto) 84.0 Lymph % (Auto) 6.5 [place] % (Auto) 2.3 Eos % (Auto) 0.2 Baso % (Auto) 1.9 Neut # (Auto) 10.17 H Lymph # (Auto) 0.8 [place] # (Auto) 0.3 Eos # (Auto) 0.0 Baso # (Auto) 0.2 H Nucleated RBC % (a uto) 0 Nucleated RBCs # 0.0 Sodium Potassium Chloride Carbon Dioxide Anion Gap BUN Creatinine GFR Calculation Glucose POC Glucose Calculated Osmolal ity Calcium Phosphorus Magnesium Total Bilirubin AST ALT Alkaline Phosphata se C-Reactive Protein Total Protein Albumin Globulin Procalcitonin Vitals: Last Vital Signs Temp 98.5 F 08/19/20 11:32 Pulse 76 08/19/20 11:32 Resp 18 08/19/20 11:32 BP 110/64 08/19/20 11:32 Pulse Ox 92 08/19/20 11:32 Discharge Plan Discharge Patient Disposition: Home Condition: Stable Prescriptions: New Vitamin B-1 (mononitrate) 100 mg Tablet 100 mg PO DAILY 30 Days Qty: 30 RF: 0 Thera 400 mcg Tablet 1 tab PO DAILY 30 Days Qty: 30 RF: 0 folic acid 1 mg Tablet 1 mg PO DAILY 30 Days Qty: 30 RF: 0 sulfamethoxazole-trimethoprim 800-160 mg Tablet 1 tab PO BID 14 Days Qty: 28 RF: 0 amoxicillin-pot clavulanate [Augmentin] 875-125 mg tablet 1 tab PO BID 14 Days Qty: 28 RF: 0 Continued (DME) blood sugar diagnostic Strip See Rx Instructions .ROUTE .MEDSUPPLY Qty: 50 RF: 0 (DME) pen needle, diabetic [BD Ultra-Fine Orig Pen Needle] 29 gauge x 1/2 needle See Rx Instructions .ROUTE .MEDSUPPLY Qty: 100 RF: 0 insulin aspart U-100 [Novolog Flexpen U-100 Insulin] 100 unit/mL (3 mL) insulin pen 25 unit SUBCUT QID RF: 0 Lantus Solostar U-100 Insulin 100 unit/mL (3 mL) insulin pen 80 unit SUBCUT BID RF: 0 trazodone 150 mg tablet 300 mg PO BEDTIME RF: 0 Viibryd 40 mg tablet 40 mg PO DAILY RF: 0 fluoxetine [Prozac] 20 mg capsule 20 mg PO DAILY RF: 0 Eliquis 5 mg tablet 5 mg PO BID RF: 0 tramadol 50 mg tablet 50 mg PO TID PRN (Reason: pain) 3 Days Qty: 9 RF: 0 hydroxyzine pamoate 25 mg capsule 25 mg PO Q6H PRN (Reason: UNKNOWN) RF: 0 pregabalin 150 mg capsule 150 mg PO BID RF: 0 Symbicort 160-4.5 mcg/actuation HFA aerosol inhaler 2 puff INHALATION BID RF: 0 Discontinued clindamycin HCl 300 mg capsule 300 mg PO TID RF: 0 Discharge Orders: Discharge Order (Routine); Ordered 08/19/20 Ordered By: Viet Hernández Other Ambulatory Orders: Complete Blood Count w/Auto (Routine) Timeframe: 1 Week Location: Determined by Patient Ordered By: Viet Hernández Comprehensive Metabolic Panel (Routine) Timeframe: 1 Week Facility: [facility] - Location: Lab - Main Lab Ordered By: Viet Hernández Referrals: WOUND CARE CLINIC, [Staff Physician] - 4-7 days Discharge Diet: Diabetic Discharge Activity: Resume usual activity Activity Restrictions/Additional Instructions: -Monitor blood sugars carefully, 3 times daily -If your blood sugars are not well controlled, the wound will not heal well -Take insulin as prescribed -Follow-up with primary care provider in one 1 week -Follow-up with wound care in 1 week -Daily dressing changes, daily packing changes as prescribed -If you have worsening area of cellulitis, worsening drainage, back to the emergency room -Take antibiotics as prescribed Discharge Attestations Time Spent in Discharge Care*: less than 30 min Quality Metrics Clinical Quality Measures During this hospital stay, did patient experience: None Coding Level of Care Code Acute Instrumentation And Control Technician for Donna Gutierrez Diagnoses Abdominal wall abscess L02.211
== END 2020-08-19 15:30 | disposition home or self-care (01) | DRG 854 ==
LOC: ER 20:15 → MEDSURG 08-16 00:28
PROVIDERS: Surgery; Admitting Provider Internal Medicine; Emergency Provider Physician Assistant; PCP Family Medicine; Visit Provider Family Medicine
PROC: 0JB80ZZ Excision of Abdomen Subcutaneous Tissue and Fascia, Open Approach (ICD-10-PCS; principal; 2020-08-17 10:45)
DX: A41.9 Sepsis, unspecified organism (principal); L03.311 Cellulitis of abdominal wall; L02.211 Cutaneous abscess of abdominal wall; K50.90 Crohn's disease, unspecified, without complications; I10 Essential (primary) hypertension; E11.40 Type 2 diabetes mellitus with diabetic neuropathy, unspecified; E11.65 Type 2 diabetes mellitus with hyperglycemia; E78.2 Mixed hyperlipidemia; T63.331A Toxic effect of venom of brown recluse spider, accidental (unintentional), initial encounter; Z95.0 Presence of cardiac pacemaker; G47.00 Insomnia, unspecified; I73.9 Peripheral vascular disease, unspecified; F17.210 Nicotine dependence, cigarettes, uncomplicated; J44.9 Chronic obstructive pulmonary disease, unspecified; Z86.711 Personal history of pulmonary embolism; Z86.718 Personal history of other venous thrombosis and embolism; B95.62 Methicillin resistant Staphylococcus aureus infection as the cause of diseases classified elsewhere; Z79.4 Long term (current) use of insulin; Z79.01 Long term (current) use of anticoagulants
CPT/HCPCS: 12345; 36415; 36416; 71045; 74177; 80053; 80061; 80202; 81001; 82962; 83036; 83605; 83690; 83735; 84100; 84145; 84443; 85007; 85025; 86140; 87040; 87070; 87075; 87077; 87186; 87205; 94640; 96365; 96372; 96375; 99283; J0690; J1170; J1815 ×2; J1885; J2250; J2270; J2405; J2543; J2704; J3010; J3370; J3490; J7030; J7050; Q9967

== ENCOUNTER 2020-08-24 13:25 | Outpatient (CLI) | payer MEDICAID, SELFPAY | END 2020-08-24 13:26 | disposition home or self-care (01) | LOC: WOUND 13:26 | PROVIDERS: PCP Family Medicine; Visit Provider Thoracic Surgery (Cardiothoracic Vascular Surgery) | DX: T63.301A Toxic effect of unspecified spider venom, accidental (unintentional), initial encounter (principal); Y92.9 Unspecified place or not applicable | CPT/HCPCS: 11042; G0463 ==

== ENCOUNTER 2020-09-13 13:09 | Outpatient (CLI) | payer MEDICAID, SELFPAY | END 2020-09-13 13:10 | disposition home or self-care (01) | LOC: WOUND 13:10 | PROVIDERS: PCP Family Medicine; Visit Provider Nurse Practitioner Family | DX: E11.622 Type 2 diabetes mellitus with other skin ulcer (principal); L98.492 Non-pressure chronic ulcer of skin of other sites with fat layer exposed | CPT/HCPCS: 11042 ==

== ENCOUNTER 2020-09-19 14:46 | Outpatient (CLI) | payer MEDICAID, SELFPAY | END 2020-09-19 14:47 | disposition home or self-care (01) | LOC: WOUND 14:46 | PROVIDERS: PCP Family Medicine; Visit Provider Thoracic Surgery (Cardiothoracic Vascular Surgery) | DX: E11.622 Type 2 diabetes mellitus with other skin ulcer (principal); L98.492 Non-pressure chronic ulcer of skin of other sites with fat layer exposed | CPT/HCPCS: G0463 ==

== ENCOUNTER 2020-09-27 14:04 | Outpatient (CLI) | payer MEDICAID, SELFPAY | END 2020-09-27 14:05 | disposition home or self-care (01) | LOC: WOUND 14:04 | PROVIDERS: PCP Family Medicine; Visit Provider Thoracic Surgery (Cardiothoracic Vascular Surgery) | DX: Z09 Encounter for follow-up examination after completed treatment for conditions other than malignant neoplasm (principal) | CPT/HCPCS: 99212 ==

== ENCOUNTER 2021-02-04 15:14 | Emergency (ER) | payer MEDICAID, SELFPAY ==
[2021-02-04 15:16] VITALS: BP 154/81; PULSE 73; RESP 18; TEMP 36.8; O2SAT 97; BMI 31.1
--- NOTE | 2021-02-04 15:24 | XRR_ITS ---
PROCEDURE INFORMATION: Exam: XR Abdomen Exam date and time: 02/04/2021 3:26 PM Age: 65 years old Clinical indication: Other: Diarrhea; Additional info: Diarhea TECHNIQUE: Imaging protocol: XR of the abdomen. Views: Frontal supine view of the abdomen. 1 View. COMPARISON: CT abdomen pelvis w con* [id number] 08/15/2020 9:29 PM FINDINGS: Gastrointestinal tract: Normal. No bowel dilation. Bones/joints: Unremarkable. XR/XR KUB portable [id number] IMPRESSION: No acute findings.
--- NOTE | 2021-02-04 15:26 | W.ED.NAVMDI ---
HPI - Nausea/Vomiting/Diarrhea General: Chief complaint: Nausea/Vomiting/Diarrhea Stated complaint: N/V/D Time Seen by Provider: 02/04/21 15:23 Source: patient, EMS and RN notes reviewed Mode of arrival: EMS Limitations: no limitations History of Present Illness: HPI Narrative: This patient presents to the emergency department for nausea vomiting diarrhea since yesterday and abdominal cramping. Patient states she only history is diabetes and her glucose was over 300 on EMS arrival. Patient states she cannot keep anything down. Patient describes the diarrhea as watery. MD elicited complaint: nausea, vomiting, diarrhea and abdominal pain Onset (ago): day(s) Associated nausea: No Associated symtoms: Denies anxiety, change in vision, chest pain, dysuria, fatigue, headache(s), nausea or palpitations Review of Systems General: Reports: 10 or more systems reviewed and unremarkable except in HPI and below Const: Denies: fever(s), chills, body aches or fatigue Eyes: Denies: change in vision or blurry vision ENMT: Denies: throat pain, hoarseness or mouth pain Card: Denies: chest pain, palpitations, irregular heart rhythm, edema, swelling of feet/ankles or lightheadedness Resp: Denies: dyspnea, productive cough, non-productive cough, wheezing or pain on inspiration GI: Denies: abdominal pain, nausea or vomiting : Denies: flank pain, difficulty voiding, dysuria, urinary frequency, urinary urgency or urinary hesitancy Musc: Denies: neck pain, back pain, extremity pain, extremity swelling, joint pain, joint swelling, joint redness, joint warmth or limited range of motion Skin/Breast: Denies: rash, pruritus, erythema or skin tenderness Neuro: Denies: headache(s), numbness in extremities or weakness in extremities Psych: Denies: anxiety or depression PFSH ED PFSH: Medical History Benign hypertension Crohn disease Diabetes Diabetic neuropathy History of DVT (deep vein thrombosis) History of pulmonary embolism Hyperlipidemia, mixed Insomnia PAD (peripheral artery disease) Surgical History Cardiac pacemaker H/O section x 1 H/O: hysterectomy / BSO Family History Other Diabetes Social History Smoking and tobacco status: current every day smoker cigarettes Packs smoked per day: 2.5 Years cigarettes smoked: 50 Alcohol intake: never Desire information about alcohol rehabilitation?: No Desire information about substance/drug rehabilitation?: No History of recent travel: No Current gender identity: Female Female Reproductive History: Spontaneous abortions: No Physical Exam Const: COMMON NORMALS: no acute distress, average body habitus, patient oriented x3, no limitations, healthy appearing, alert and well nourished HENMT: COMMON NORMALS: normocephalic, atraumatic, external ears normal, EAC's normal, TM's normal bilaterally, Normal external nose present and Normal nasal mucous membranes and turbinates present HEAD & SCALP: normocephalic and atraumatic NOSE: Normal external nose present and Normal nasal mucous membranes and turbinates present EXTERNAL EAR: Yes external ears normal EXTERNAL AUDITORY CANAL: EAC's normal TYMPANIC MEMBRANE: TM's normal bilaterally Neck/C-Spine: COMMON NORMALS: full ROM, no lymphadenopathy, supple, no meningeal signs, no JVD, Thyroid normal and No carotid bruits THYROID: Thyroid normal Chest: COMMONS NORMALS: normal inspection of the chest, normal palpation of entire chest wall, normal inspection of the breasts and normal palpation of the breasts Breast/axilla inspection: Yes normal inspection of the breasts BREAST/AXILLA PALPATION: Yes normal palpation of the breasts Resp: COMMON NORMALS: normal respiratory effort, No retractions, No use of accessory muscles, clear to auscultation bilaterally and percussion normal AUSCULTATION: clear to auscultation bilaterally PERCUSSION: percussion normal Cardio: COMMON NORMALS: no JVD, regular rate, regular rhythm, S1 normal heart sound present, S2 normal heart sound present, No gallops present (Cardio), No clicks present (Cardio), No murmurs present (Cardio), No rub (Cardio) and Peripheral pulses 2+ throughout RATE: regular rate RHYTHM: regular rhythm HEART SOUNDS: S1 normal heart sound present and S2 normal heart sound present PERIPHERAL PULSES: Peripheral pulses 2+ throughout GI: COMMON NORMALS: Normal to inspection, nondistended, normoactive bowel sounds present, Soft to palpation, non-tender, No hepatosplenomegaly present, no masses and no bruits PALPATION: Yes Soft to palpation and Yes No hepatosplenomegaly present : COMMON NORMALS: Yes no CVA tenderness, Yes normal external appearance, Yes normal appearance of the vagina, Yes normal appearance of the cervix, Yes normal bimanual exam, Yes No adnexal tenderness and Yes no masses BLADDER/KIDNEY EXAM: Yes no CVA tenderness BIMANUAL EXAM - VAGINA & UTERUS: Yes normal bimanual exam Back/Pelvis: COMMON NORMALS: no CVA tenderness, thoracic and lumbar spine normal to inspection, no thoracic nor lumbar tenderness, thoraco-lumbar ROM normal and straight leg raise negative bilaterally Extremity: COMMON NORMALS: normal to inspection, full ROM, capillary refill normal, no joint enlargement, no clubbing, cyanosis or edema, no calf tenderness and no pedal edema Neuro: COMMON NORMALS: patient oriented x3 SENSORIUM/ORIENTATION: Yes alert MENINGEAL SIGNS: Yes no meningeal signs Course Reevaluation(s): Reevaluation #1: Negative evaluation in the emergency room for any acute findings. Patient has had no vomiting in the emergency department. Patient is encouraged p.o. fluids. Take Zofran as needed as needed for vomiting. Monitor glucose closely. Follow-up with PCP in 2 to 3 days. Time: 16:51 Vital Signs: Vital signs: Vital Signs Temperature 98.2 F 02/04/21 15:16 Pulse Rate 57 L 02/04/21 16:22 Respiratory Rate 18 02/04/21 16:22 Blood Pressure 153/79 02/04/21 16:22 Pulse Oximetry 95 02/04/21 16:22 MDM - Nausea/Vomiting/Diarrhea MDM Narrative: Medical decision making narrative: This patient presents to the emergency department for nausea vomiting diarrhea since yesterday and abdominal cramping. Patient states she only history is diabetes and her glucose was over 300 on EMS arrival. Patient states she cannot keep anything down. Patient describes the diarrhea as watery. Negative evaluation in the emergency room for any acute findings. Patient has had no vomiting in the emergency department. Patient is encouraged p.o. fluids. Take Zofran as needed as needed for vomiting. Monitor glucose closely. Follow-up with PCP in 2 to 3 days Medical Records: Attestation: I reviewed the patient's medical records. Lab Data: Attestation: I reviewed the patient's lab results. Labs: Lab Results 02/04/21 02/04/21 02/04/21 Range/Units 15:40 15:40 16:14 WBC 13.1 H (4.0-10.0) 10^3/ uL RBC 5.52 H (4.1-5.3) 10^6/u L Hgb 14.6 (11.5-15.3) g/dL Hct 43.9 (37.0-47.0) % MCV 79.5 L (81-99) fL MCH 26.4 L (28.0-34.0) pg MCHC 33.3 (30.0-36.0) g/dL RDW 18.9 H (12.1-15.1) % Plt Count 345 (130-400) 10^3/c mm MPV Not Reportable Neut % (Auto) 91.4 % Lymph % (Auto) 4.6 % [place] % (Auto) 0.9 % Eos % (Auto) 0.2 % Baso % (Auto) 0.5 % Neut # (Auto) 11.94 H (1.8-7.7) 10^3/u L Lymph # (Auto) 0.6 L (0.8-4.8) 10^3/u L [place] # (Auto) 0.1 L (0.2-0.9) 10^3/u L Eos # (Auto) 0.0 (0.0-0.8) 10^3/u L Baso # (Auto) 0.1 (0.0-0.1) 10^3/u L Nucleated RBC % (a uto) 0 % Nucleated RBCs # 0.0 /100WBC Sodium 136 (136-145) mmol/L Potassium 4.8 (3.5-5.1) mmol/L Chloride 98 (98-107) mmol/L Carbon Dioxide 24 (22-29) mmol/L Anion Gap 18.8 (5-19) BUN 29 H (8-23) mg/dL Creatinine 0.6 (0.5-0.9) mg/dL GFR Calculation 101.0 (90-130) mL/min Glucose 387 H (65-115) mg/dL Calculated Osmolal ity 304 H (285-295) mOsm/k g Calcium 9.0 (8.5-10.5) mg/dL Total Bilirubin 0.8 (0.15-1.2) mg/dL AST 11 (0-32) U/L ALT 17 (0-33) U/L Alkaline Phosphata se 139 H (35-105) IU/L Total Protein 7.4 (6.6-8.7) g/dL Albumin 4.2 (3.5-5.2) g/dL Globulin 3.2 (1.3-4.6) g/dL Lipase 7 L (13-60) U/L Urine Color (Yellow) Urine Appearance (CLEAR) Urine pH (5-7) Ur Specific Gravit y (1.005-1.030) Urine Protein (Negative) Urine Glucose (UA) (Normal) Urine Ketones (Negative) Urine Blood (Negative) Urine Nitrate (Negative) Urine Bilirubin (Negative) Urine Urobilinogen (Negative) mg/dL Ur Leukocyte Nazia ase (Negative) Urine RBC (0-2) /hpf Urine WBC (0-5) /hpf Ur Squamous Epith Cells (0-5) /hpf Amorphous Sediment Urine Bacteria (NONE) /hpf Urine Mucus /hpf Urine Opiates Scre en Negative (Negative) ng/mL Ur Barbiturates Sc reen Negative (Negative) ng/mL Ur Phencyclidine S crn Negative (Negative) ng/mL Ur Amphetamines Sc reen Negative (Negative) ng/mL U Benzodiazepines Scrn Negative (Negative) ng/mL Urine Cocaine Scre en Negative (Negative) ng/mL U Marijuana (THC) Screen Negative (Negative) ng/mL 02/04/21 Range/Units 16:14 WBC (4.0-10.0) 10^3/ uL RBC (4.1-5.3) 10^6/u L Hgb (11.5-15.3) g/dL Hct (37.0-47.0) % MCV (81-99) fL MCH (28.0-34.0) pg MCHC (30.0-36.0) g/dL RDW (12.1-15.1) % Plt Count (130-400) 10^3/c mm MPV Neut % (Auto) % Lymph % (Auto) % [place] % (Auto) % Eos % (Auto) % Baso % (Auto) % Neut # (Auto) (1.8-7.7) 10^3/u L Lymph # (Auto) (0.8-4.8) 10^3/u L [place] # (Auto) (0.2-0.9) 10^3/u L Eos # (Auto) (0.0-0.8) 10^3/u L Baso # (Auto) (0.0-0.1) 10^3/u L Nucleated RBC % (a uto) % Nucleated RBCs # /100WBC Sodium (136-145) mmol/L Potassium (3.5-5.1) mmol/L Chloride (98-107) mmol/L Carbon Dioxide (22-29) mmol/L Anion Gap (5-19) BUN (8-23) mg/dL Creatinine (0.5-0.9) mg/dL GFR Calculation (90-130) mL/min Glucose (65-115) mg/dL Calculated Osmolal ity (285-295) mOsm/k g Calcium (8.5-10.5) mg/dL Total Bilirubin (0.15-1.2) mg/dL AST (0-32) U/L ALT (0-33) U/L Alkaline Phosphata se (35-105) IU/L Total Protein (6.6-8.7) g/dL Albumin (3.5-5.2) g/dL Globulin (1.3-4.6) g/dL Lipase (13-60) U/L Urine Color Yellow (Yellow) Urine Appearance Clear (CLEAR) Urine pH 5 (5-7) Ur Specific Gravit y 1.015 (1.005-1.030) Urine Protein Neg (Negative) Urine Glucose (UA) 4+ H (Normal) Urine Ketones Negative (Negative) Urine Blood 2+ H (Negative) Urine Nitrate Negative (Negative) Urine Bilirubin Neg (Negative) Urine Urobilinogen Norm (Negative) mg/dL Ur Leukocyte Nazia ase Negative (Negative) Urine RBC None (0-2) /hpf Urine WBC None (0-5) /hpf Ur Squamous Epith Cells 5-10 H (0-5) /hpf Amorphous Sediment Not Reportable Urine Bacteria Trace (NONE) /hpf Urine Mucus 2+ /hpf Urine Opiates Scre en (Negative) ng/mL Ur Barbiturates Sc reen (Negative) ng/mL Ur Phencyclidine S crn (Negative) ng/mL Ur Amphetamines Sc reen (Negative) ng/mL U Benzodiazepines Scrn (Negative) ng/mL Urine Cocaine Scre en (Negative) ng/mL U Marijuana (THC) Screen (Negative) ng/mL Imaging Data^: KUB: Attestation: I personally reviewed and interpreted this imaging study as follows: Radiologist's impression: FINDINGS: Gastrointestinal tract: Normal. No bowel dilation. Bones/joints: Unremarkable. XR/XR KUB portable [id number] IMPRESSION: No acute findings. Discharge Plan Discharge Patient Disposition: Home Clinical Impression: Gastroenteritis Condition: Stable Prescriptions: New Flagyl 500 mg tablet 500 mg PO BID 7 Days Qty: 14 RF: 0 ondansetron 4 mg tablet,disintegrating 4 mg PO DAILY PRN (Reason: nausea and vomiting) 4 Days RF: 0 No Action (DME) blood sugar diagnostic Strip See Rx Instructions .ROUTE .MEDSUPPLY Qty: 50 RF: 0 (DME) pen needle, diabetic [BD Ultra-Fine Orig Pen Needle] 29 gauge x 1/2 needle See Rx Instructions .ROUTE .MEDSUPPLY Qty: 100 RF: 0 insulin aspart U-100 [Novolog Flexpen U-100 Insulin] 100 unit/mL (3 mL) insulin pen 25 unit SUBCUT QID RF: 0 Lantus Solostar U-100 Insulin 100 unit/mL (3 mL) insulin pen 80 unit SUBCUT BID RF: 0 trazodone 150 mg tablet 300 mg PO BEDTIME@1999 RF: 0 Viibryd 40 mg tablet 40 mg PO DAILY@1999 RF: 0 fluoxetine [Prozac] 20 mg capsule 20 mg PO DAILY@1999 RF: 0 Eliquis 5 mg tablet 10 mg PO DAILY@1999 RF: 0 tramadol 50 mg tablet 50 mg PO TID PRN (Reason: pain) 3 Days Qty: 9 RF: 0 pregabalin 150 mg capsule 150 mg PO DAILY@1999 RF: 0 budesonide-formoterol [Symbicort] 160-4.5 mcg/actuation HFA aerosol inhaler 2 puff INHALATION BID RF: 0 Vraylar 3 mg capsule 3 mg PO DAILY@1999 RF: 0 Discharge Orders: Discharge ED (Routine); Ordered 02/04/21 Ordered By: Adiel Ann Referrals: Rosie Hidalgo DO [Primary Care Provider] - Discharge Diet: Advance as tolerated and Usual diet Discharge Activity: Resume usual activity Patient Instructions: Opioid Safety Activity Restrictions/Additional Instructions: Encourage p.o. fluids, Zofran as needed for nausea. Advance diet slowly as tolerated. Take all medications as prescribed. Follow-up with PCP in 2 to 3 days. Return to the emergency department symptoms fail to improve or worsen. Coding Level of Care Code ED Supervisor Filter Assembly for Donna Fwd Exam Comprehensive
[2021-02-04] MEDS: sodium chloride 0.9% 1,000 ML 999 ML IV (15:40)
[2021-02-04] MEDS: ondansetron 2 mg/ML SDV 2 mL 4 MG IVP (15:40)
[2021-02-04 15:53] LABS: Basophils # 0.1 10^3/uL (0.0-0.1); Basophils % 0.5 %; Eosinophils % 0.2 %; Hematocrit 43.9 % (37.0-47.0); Hemoglobin 14.6 g/dL (11.5-15.3); Lymphocytes # 0.6 10^3/uL (0.8-4.8); Lymphocytes % 4.6 %; Mean Corpuscular HGB Conc 33.3 g/dL (30.0-36.0); Mean Corpuscular Hemoglobin 26.4 pg (28.0-34.0); Mean Corpuscular Volume 79.5 fL (81-99); Monocytes # 0.1 10^3/uL (0.2-0.9); Monocytes % 0.9 %; Neutrophils # 11.94 10^3/uL (1.8-7.7); Neutrophils % 91.4 %; Nucleated Red Blood Cells % 0 %; Platelet Count 345 10^3/cmm (130-400); Red Blood Count 5.52 10^6/uL (4.1-5.3); Red Cell Distribution Width 18.9 % (12.1-15.1); White Blood Count 13.1 10^3/uL (4.0-10.0)
[2021-02-04 16:12] LABS: Slide Review Slide Review Perform
[2021-02-04 16:18] LABS: Alanine Aminotransferase 17 U/L (0-33); Albumin Level 4.2 g/dL (3.5-5.2); Alkaline Phosphatase 139 IU/L (35-105); Aspartate Amino Transferase 11 U/L (0-32); Blood Urea Nitrogen 29 mg/dL (8-23); Carbon Dioxide 24 mmol/L (22-29); Chloride 98 mmol/L (98-107); Globulin 3.2 g/dL (1.3-4.6); Glucose 387 mg/dL (65-115); Lipase 7 U/L (13-60); Osmolality Calculated 304 mOsm/kg (285-295); Sodium 136 mmol/L (136-145); Total Bilirubin 0.8 mg/dL (0.15-1.2); Total Protein 7.4 g/dL (6.6-8.7)
[2021-02-04 16:20] LABS: Anion Gap 18.8 (5-19); Potassium 4.8 mmol/L (3.5-5.1)
[2021-02-04 16:22] VITALS: BP 153/79; PULSE 57; RESP 18; O2SAT 95
[2021-02-04 16:39] LABS: Add Urine Microscopic? YES; Amphetamines Screen Urine Negative (Negative); Barbiturates Screen Urine Negative (Negative); Benzodiazepines Screen Urine Negative (Negative); Bilirubin Urine Neg (Negative); Blood Urine 2+ (Negative); Cocaine Screen Urine Negative (Negative); Glucose Urine UA 4+ (Normal); Ketones Urine Negative (Negative); Leukocyte Esterase Urine Negative (Negative); Nitrate Urine Negative (Negative); Opiate Screen Urine Negative (Negative); PCP Screen Urine Negative (Negative); Protein Urine Neg (Negative); Specific Gravity, Urine 1.015 (1.005-1.030); THC Screen Urine Negative (Negative); Urine Appearance Clear (CLEAR); Urine Color Yellow (Yellow); Urobilinogen Urine Norm (Negative); pH Urine 5 (5-7)
[2021-02-04 16:44] LABS: Bacteria Urine TRACE /hpf
[2021-02-04 16:45] LABS: Add Urine Culture? No; Mucus Urine 2+ /hpf
[2021-02-04 17:26] VITALS: BP 142/59; PULSE 95; RESP 18; O2SAT 96
== END 2021-02-04 17:29 | disposition home or self-care (01) ==
PROVIDERS: Emergency Provider Emergency Medicine; PCP Family Medicine
DX: K52.9 Noninfective gastroenteritis and colitis, unspecified (principal); Z79.4 Long term (current) use of insulin; Z79.01 Long term (current) use of anticoagulants; I10 Essential (primary) hypertension; E11.40 Type 2 diabetes mellitus with diabetic neuropathy, unspecified; E78.2 Mixed hyperlipidemia; F17.210 Nicotine dependence, cigarettes, uncomplicated; Z95.0 Presence of cardiac pacemaker
CPT/HCPCS: 74018; 80053; 80306; 81001; 83690; 85025; 96361; 96374; 99283; J2405; J7030

== ENCOUNTER 2021-09-30 10:01 | Emergency (ER) | payer MEDICAID, SELFPAY ==
--- NOTE | 2021-09-30 10:11 | ED_ITS ---
HPI - SOB/Dyspnea General: Chief Complaint: Shortness of Breath/Dyspnea Stated Complaint: SOB Diff breathing Time Seen by Provider: 09/30/21 10:11 History of Present Illness: HPI Narrative: 66-year-old female presents to the emergency room with complaints of cough. She has been on a couple rounds of antibiotics as well as steroids additionally she was given diuretics. She has a PCP in [place] she was seen there and directed to the emergency room she denies any chest pain cough has been moderately productive she had some myalgias denies any diarrhea. Has not previously been vaccinated for COVID nor is she tested positive for COVID. MD elicited complaint: shortness of breath and cough Pertinent past history: COPD and diabetes Onset (ago): week(s) Timing: constant Severity: mild Exacerbating factors: exertion and coughing Relieving factors: nothing Known history of: COPD and diabetes Associated symptoms: Reports chest congestion and cough; Deny abdominal pain, chest pain, diaphoresis, dizziness, extremity pain, fever(s), hemoptysis, lightheadedness, myalgias, nausea, orthopnea, palpitations, paresthesias, polydipsia, polyuria, rash, sense of impending doom, syncope or vomiting Review of Systems Const: Denies: fever(s) or diaphoresis ENMT: Denies: throat pain, ear or mastoid pain, nasal discharge or nasal congestion Card: Denies: chest pain, palpitations, lightheadedness, syncope or orthopnea Resp: Reports: chest congestion; Denies: hemoptysis GI: Denies: abdominal pain, nausea or vomiting : Denies: flank pain, difficulty voiding, dysuria, urinary frequency or urinary urgency Musc: Denies: extremity pain Skin/Breast: Denies: rash or pruritus Neuro: Denies: dizziness Endo: Denies: polyuria or polydipsia PFSH ED PFSH: Medical History Benign hypertension Crohn disease Diabetes Diabetic neuropathy History of DVT (deep vein thrombosis) History of pulmonary embolism Hyperlipidemia, mixed Insomnia PAD (peripheral artery disease) Surgical History Cardiac pacemaker H/O section x 1 H/O: hysterectomy / BSO Family History Other Diabetes Social History Smoking and tobacco status: current every day smoker cigarettes Packs smoked per day: 2.5 Years cigarettes smoked: 50 Alcohol intake: never Desire information about alcohol rehabilitation?: No Desire information about substance/drug rehabilitation?: No History of recent travel: No Current gender identity: Female Female Reproductive History: Spontaneous abortions: No Physical Exam Const: COMMON NORMALS: average body habitus, patient oriented x3 and alert GENERAL APPEARANCE: cooperative, comfortable, well kempt and well developed NUTRITIONAL APPEARANCE: obese ORIENTATION/CONSCIOUSNESS: Yes awake, Yes oriented to person and Yes oriented to place HENMT: COMMON NORMALS: normocephalic, atraumatic, EAC's normal, TM's normal bilaterally, Normal external nose present, moist oral mucous membranes and oropharynx normal HEAD & SCALP: normocephalic and atraumatic NOSE: Normal external nose present EXTERNAL AUDITORY CANAL: EAC's normal TYMPANIC MEMBRANE: TM's normal bilaterally MOUTH: Normal oral and palatal mucosa present, lip normal and tongue normal THROAT: posterior oropharynx normal and tonsils normal Eye: COMMON NORMALS: Equal, round and reactive pupils present, EOMs intact b ilaterally, conjunctivae normal and no scleral icterus CONJUNCTIVA: Yes conjunctivae normal PUPIL: Yes Equal, round and reactive pupils present Neck/C-Spine: COMMON NORMALS: full ROM, no lymphadenopathy, supple, no meningeal signs and Thyroid normal THYROID: Thyroid normal and asymmetrical Lymph: LYMPHATIC: no lymphadenopathy noted Resp: COMMON NORMALS: normal respiratory effort, No retractions, No use of accessory muscles and clear to auscultation bilaterally AUSCULTATION: clear to auscultation bilaterally Cardio: COMMON NORMALS: regular rate and regular rhythm RATE: regular rate RHYTHM: regular rhythm HEART SOUNDS: no murmurs GI: COMMON NORMALS: Normal to inspection, nondistended, normoactive bowel sounds present, Soft to palpation and No hepatosplenomegaly present PALPATION: Yes Soft to palpation and Yes No hepatosplenomegaly present : COMMON NORMALS: Yes no CVA tenderness BLADDER/KIDNEY EXAM: Yes no CVA tenderness Back/Pelvis: COMMON NORMALS: no CVA tenderness LUMBAR SPINE/LOWER BACK: Yes normal to inspection Extremity: COMMON NORMALS: no clubbing, cyanosis or edema, no calf tenderness and no pedal edema Neuro: COMMON NORMALS: patient oriented x3 SENSORIUM/ORIENTATION: Yes alert, Yes oriented to person and Yes oriented to place MENINGEAL SIGNS: Yes no meningeal signs Psych: APPEARANCE: Yes well kempt Skin: COMMON NORMALS: no rashes or lesions noted and turgor normal GENERAL SKIN EXAM: no rashes or lesions noted and turgor normal Course Vital Signs: Vital signs: Vital Signs Temperature 98.1 F 09/30/21 10:15 Pulse Rate 112 H 09/30/21 11:39 Respiratory Rate 18 09/30/21 11:39 Blood Pressure 138/75 09/30/21 11:39 Pulse Oximetry 92 09/30/21 11:39 MDM - SOB/Dyspnea MDM Narrative Medical decision making narrative: Patient was hypoxic and does require oxygen she was 89% on room air she became frustrated while waiting and left AMA try to convince her to stay could not redirect her. Patient encouraged to return if she has any further problems or like to get treated. Discharge Plan Discharge Patient Disposition: Left Against Medical Advice Clinical Impression: Clinical diagnosis of COVID-19, Hypoxia Condition: Stable Prescriptions: No Action (DME) blood sugar diagnostic Strip See Rx Instructions .ROUTE .MEDSUPPLY Qty: 50 0RF Rx Instructions: 1 TEST STRIP FOUR TIMES DAILY NEEDED (DME) pen needle, diabetic [BD Ultra-Fine Orig Pen Needle] 29 gauge x 1/2 needle See Rx Instructions .ROUTE .MEDSUPPLY Qty: 100 0RF Rx Instructions: As directed Lantus Solostar U-100 Insulin 100 unit/mL (3 mL) insulin pen 80 unit SUBCUT BID MDD SEE PHARMACY COMMENT 0RF Rx Instructions: SEE PHARMACY COMMENT trazodone 150 mg tablet 300 mg PO BEDTIME@1999 0RF Viibryd 40 mg tablet 40 mg PO DAILY@1999 0RF Rx Instructions: must administer with a meal/food fluoxetine [Prozac] 20 mg capsule 20 mg PO DAILY@1999 0RF Eliquis 5 mg tablet 5 mg PO BID 0RF tramadol 50 mg tablet 50 mg PO TID PRN (Reason: pain) 3 Days Qty: 9 0RF budesonide-formoterol [Symbicort] 160-4.5 mcg/actuation HFA aerosol inhaler 2 puff INHALATION BID 0RF Vraylar 3 mg capsule 3 mg PO DAILY@1999 0RF Referrals: Rosie Hidalgo DO [Primary Care Provider] - Activity Restrictions/Additional Instructions: Because you chose to leave AGAINST MEDICAL ADVICE were unable to complete the evaluation. You are hypoxic and require oxygen. You are welcome to return at any time if you want to be further evaluated and treated. Coding Level of Care Code ED Radio News Anchor for Chg Fwd Exam Comprehensive
[2021-09-30 10:15] VITALS: BP 150/83; PULSE 112; RESP 22; TEMP 36.7; O2SAT 89; BMI 33.4
--- NOTE | 2021-09-30 10:23 | ECG_ITS ---
[facility] Test Date: 2021-09-30 Pat Name: Janae Shaw Department: Room: Gender: Female Freezer Assistant: : 1955 Requested By: Freddy Booker Order Number: [id number] Reading MD: RICH MORELAND Measurements Intervals [place] Rate: 86 P: 61 CO: 138 QRS: -18 QRSD: 86 T: 52 QT: 357 QTc: 427 Interpretive Statements SINUS RHYTHM WITH MARKED SINUS ARRHYTHMIA LOW QRS VOLTAGE IN PRECORDIAL LEADS [QRS DEFLECTION < 1.0 mV IN CHEST LEADS] POSSIBLE ANTERIOR MYOCARDIAL INFARCTION , PROBABLY OLD [30 ms Q WAVE IN V3/V4, OR R < 0.2 mV IN V4] No previous ECG available for comparison Electronically Signed On 09-30-2021 19:56:38 CLAY PREPARATION SUPERVISOR by RICH MORELAND [email or web address]
--- NOTE | 2021-09-30 10:23 | XRR_ITS ---
PROCEDURE INFORMATION: Exam: XR Chest Exam date and time: 09/30/2021 10:23 AM Age: 66 years old Clinical indication: Cough and dyspnea; Additional info: Dyspnea/cough TECHNIQUE: Imaging protocol: XR of the chest. Views: 1 view. COMPARISON: CR XR chest 1V portable [id number] 08/16/2020 6:31 AM FINDINGS: Tubes, catheters and devices: A permanent sequential pacemaker appears intact. Lungs: Unremarkable. No consolidation. Pleural spaces: Unremarkable. No pleural effusion. No pneumothorax. Heart/Mediastinum: Unremarkable. No cardiomegaly. Bones/joints: Unremarkable. XR/XR chest 1V portable [id number] IMPRESSION: No acute cardiopulmonary abnormality.
[2021-09-30 11:39] VITALS: BP 138/75; PULSE 112; RESP 18; O2SAT 92
== END 2021-09-30 13:05 | disposition left against medical advice (07) ==
PROVIDERS: Emergency Provider Family Medicine; PCP Family Medicine
DX: U07.1 COVID-19 (principal); R09.02 Hypoxemia; Z79.01 Long term (current) use of anticoagulants; Z79.4 Long term (current) use of insulin; I10 Essential (primary) hypertension; E11.40 Type 2 diabetes mellitus with diabetic neuropathy, unspecified; Z86.711 Personal history of pulmonary embolism; E78.2 Mixed hyperlipidemia; Z95.0 Presence of cardiac pacemaker; F17.210 Nicotine dependence, cigarettes, uncomplicated; Z53.21 Procedure and treatment not carried out due to patient leaving prior to being seen by health care provider
CPT/HCPCS: 71045; 93005; 99282